=== PATIENT | male | born 1970 | race Two or more races ===

== ENCOUNTER 2017-10-13 21:06 | Emergency (ER) | payer OTHER ==
--- NOTE | 2017-10-13 21:39 | ED ---
General Adult HPI - General Chief complaint: Alcohol Stated complaint: ETOH Time Seen by Provider: 10/13/17 21:31 Source: police, EMS, RN notes reviewed Mode of arrival: EMS Limitations: altered mental status - History of Present Illness Initial comments: 47-year-old male presents to the emergency Department chief complaint of alcohol intoxication. Patient has no complaints at this time. He was brought by EMS due to the fact that he was stumbling. Patient denies any recent fever, chills, shortness of breath, chest pain, back pain, abdominal pain, nausea vomiting, numbness or tingling, dysuria or hematuria, constipation or diarrhea, headaches or visual changes, or any other current symptoms. - Related Data Home Medications Medication Instructions Recorded Confirmed No Known Home Medications [No 08/30/15 09/23/16 Known Home Medications] Allergies Allergy/AdvReac Type Severity Reaction Status Date / Time venom-honey bee Allergy Unknown Verified 09/23/16 17:53 [bee venom (honey bee)] Review of Systems ROS Statement: Those systems with pertinent positive or pertinent negative responses have been documented in the HPI. ROS Other: All systems not noted in ROS Statement are negative. Past Medical History Past Medical History: Unable to Obtain History of Any Multi-Drug Resistant Organisms: None Reported Past Surgical History: Orthopedic Surgery Additional Past Surgical History / Comment(s): LEFT KNEE SURGERY Past Psychological History: No Psychological Hx Reported Smoking Status: Current every day smoker Past Alcohol Use History: Occasional Past Drug Use History: Marijuana General Exam Limitations: altered mental status General appearance: alert, in no apparent distress Neck exam: Present: normal inspection. Absent: tenderness, meningismus, lymphadenopathy Respiratory exam: Present: normal lung sounds bilaterally. Absent: respiratory distress, wheezes, rales, rhonchi, stridor Cardiovascular Exam: Present: regular rate, normal rhythm, normal heart sounds. Absent: systolic murmur, diastolic murmur, rubs, gallop, clicks Neurological exam: Present: alert Skin exam: Present: warm, dry, intact, normal color. Absent: rash Course Vital Signs 10/13/17 21:08 Pulse Rate 90 Respiratory 16 Rate Blood Pressure 133/55 O2 Sat by Pulse 100 Oximetry Medical Decision Making - Medical Decision Making 47-year-old male presents to the emergency department with chief complaint of alcohol intoxication. At this time patient is clinically sober he is up walking around the department alert and oriented 3 answering all questions appropriately. At this time the patient will be discharged home. Patient is agreement this plan. Disposition Clinical Impression: Alcoholic intoxication Disposition: HOME SELF-CARE Condition: Stable Instructions: Alcohol Intoxication (ED) Additional Instructions: Please use medication as discussed. Please follow up with family doctor if symptoms have not improved over the next two days. Please return to the emergency room if your symptoms increase or worsen or for any other concerns. Referrals: Neisha Pina MD [STAFF PHYSICIAN] - 1-2 days Time of Disposition: 02:38
[2017-10-14 02:44] VITALS: BP 144/65; PULSE 95; RESP 19; TEMP 98.4
== END 2017-10-14 02:43 | disposition home or self-care (01) ==
LOC: EC 21:06
DX: F10.120 Alcohol abuse with intoxication, uncomplicated (principal); F17.200 Nicotine dependence, unspecified, uncomplicated; Z91.030 Bee allergy status
CPT/HCPCS: 99284

== ENCOUNTER 2018-06-12 23:22 | Observation (INO) | payer OTHER ==
[2018-06-12] MEDS ORDERED: SODIUM CHLORIDE 0.9% 1,000 ML BAG ONE (23:45)
[2018-06-12] MEDS ORDERED: LORazepam 2 MG/ML INJ ONE (23:45)
[2018-06-12] MEDS ORDERED: LIDOCAINE 1%-EPI 1:100,000 30 ML VIAL ONE (23:45)
[2018-06-12] MEDS ORDERED: HALOPERIDOL LACTATE 5 MG/ML 1 ML VIAL ONE (23:45)
[2018-06-13] MEDS ORDERED: DIPH,PERTUSS(ACELL),TET PED 0.5 ML SYRINGE IM ONE (00:55)
[2018-06-13] MEDS ORDERED: LORazepam 2 MG/ML INJ IV PRN ×3 (04:38)
[2018-06-13 04:39] LABS: Basophils # (A) 0.1 k/uL (0-0.2); Basophils % (A) 1 %; Eosinophils # (A) 0.2 k/uL (0-0.7); Eosinophils % (A) 3 %; HCT 46.5 % (39.0-53.0); HGB 16.3 gm/dL (13.0-17.5); Lymphocytes % (A) 33 %; MCH 33.5 pg (25.0-35.0); MCV 95.8 fL (80.0-100.0); Mean Platelet Volume 7.7; Monocytes # (A) 0.3 k/uL (0-1.0); Monocytes % (A) 4 %; Neutrophils # (A) 3.5 k/uL (1.3-7.7); Neutrophils % (A) 56 %; Platelet Count 181 k/uL (150-450); RBC 4.85 m/uL (4.30-5.90); RDW 15.1 % (11.5-15.5); WBC 6.2 k/uL (3.8-10.6)
[2018-06-13 04:41] LABS: Prothrombin Time 9.7 sec (9.0-12.0)
[2018-06-13] MEDS ORDERED: ONDANSETRON 4 MG/2 ML VIAL IVP PRN (04:41)
[2018-06-13] MEDS ORDERED: SODIUM CHLORIDE 0.9% 1,000 ML IV SCH (04:45)
[2018-06-13 04:59] LABS: ALT 39 U/L (21-72); AST 46 U/L (17-59); Albumin 4.2 g/dL (3.5-5.0); Alkaline Phosphatase 63 U/L (38-126); Anion Gap 14 mmol/L; Blood Urea Nitrogen 12 mg/dL (9-20); Calcium 8.7 mg/dL (8.4-10.2); Carbon Dioxide 18 mmol/L (22-30); Chloride 110 mmol/L (98-107); Glucose 214 mg/dL (74-99); Potassium 3.8 mmol/L (3.5-5.1); Sodium 142 mmol/L (137-145); Total Bilirubin 0.4 mg/dL (0.2-1.3); Total Protein 6.9 g/dL (6.3-8.2)
[2018-06-13 05:01] LABS: Alcohol 376 mg/dL
--- NOTE | 2018-06-13 08:56 | CT ---
EXAM: CT Chest, Abdomen Pelvis With Intravenous Contrast CLINICAL HISTORY: Trauma, ETOH, Pcu652/100ml, DLP 777.50 TECHNIQUE: Axial computed tomography images of the chest, abdomen pelvis with intravenous contrast. DLP is 777.5 mGy-cm. This CT exam was performed using one or more of the following dose reduction techniques: automated exposure control, adjustment of the mA and/or kV according to patient size, and/or use of iterative reconstruction technique. COMPARISON: No relevant prior studies available. FINDINGS: Mild artifact. No traumatic findings within the chest, abdomen or pelvis. No acute fractures. Nonemergent/incidental findings: Old left clavicle fracture, possible hepatic steatosis and transitional lumbosacral vertebra. IMPRESSION: No traumatic findings within the chest, abdomen or pelvis.
--- NOTE | 2018-06-13 09:00 | CT ---
EXAM: CT Head Without Intravenous Contrast CLINICAL HISTORY: ETOH trauma TECHNIQUE: Axial computed tomography images of the head/brain without intravenous contrast. DLP is 1081.6 mGy-cm. This CT exam was performed using one or more of the following dose reduction techniques: automated exposure control, adjustment of the mA and/or kV according to patient size, and/or use of iterative reconstruction technique. COMPARISON: No relevant prior studies available. FINDINGS: Extra cranial soft tissue injury suggested. No intracranial hemorrhage, mass effect or skull fracture. No hydrocephalus. No evidence for acute large vessel infarct. Imaged sinuses and mastoids well-aerated. IMPRESSION: No acute intracranial findings EXAM: CT Cervical Spine Without Intravenous Contrast CLINICAL HISTORY: ETOH trauma TECHNIQUE: Axial computed tomography images of the cervical spine without intravenous contrast. DLP is 399.1 mGy-cm. This CT exam was performed using one or more of the following dose reduction techniques: automated exposure control, adjustment of the mA and/or kV according to patient size, and/or use of iterative reconstruction technique. COMPARISON: No relevant prior studies available. FINDINGS: There is motion artifact at lower portions of exam. Allowing for artifact, no acute fracture. Degenerative changes. Old left clavicle fracture suggested on shoe stock associate film. Peritonsillar calcifications likely sequela of prior infection. IMPRESSION: Limited by motion. No acute fracture allowing for artifact.
--- NOTE | 2018-06-13 09:02 | XR ---
EXAM: XR Right Shoulder Complete, 2 or More Views CLINICAL HISTORY: ETOH TECHNIQUE: Two or more views of the right shoulder. COMPARISON: No relevant prior studies available. FINDINGS/IMPRESSION: No acute fracture or dislocation Degenerative changes. EXAM: XR Right Elbow Complete, 3 or More Views CLINICAL HISTORY: ETOH TECHNIQUE: Frontal, lateral and oblique views of the right elbow. COMPARISON: No relevant prior studies available. FINDINGS/IMPRESSION: Suboptimal positioning on lateral view No acute fracture or dislocation.
[2018-06-13 09:12] LABS: Glucose,Whole Blood 215 mg/dL (75-99)
[2018-06-13 09:27] VITALS: BP 87/54; PULSE 82; RESP 18; TEMP 97.8
[2018-06-13] MEDS ORDERED: THIAMINE 100 MG TAB PO SCH (12:00)
--- NOTE | 2018-06-13 12:09 | P.DS ---
Providers Date of admission: 06/13/18 03:00 Attending physician: Zeinab Gonsalez Primary care physician: Selena Ness [place] Hospital Course: Please refer to my HPI Plan - Discharge Summary New Discharge Prescriptions: No Action No Known Home Medications Discharge Medication List No Known Home Medications 08/30/15 [History] Follow up Appointment(s)/Referral(s): Thi Walters MD [Primary Care Provider] - 1 Week Patient Instructions/Handouts: Alcohol Intoxication (DC) Discharge Disposition: HOME SELF-CARE
--- NOTE | 2018-06-13 12:09 | P.HPIM ---
History of Present Illness 48-year-old the female was brought in after EMS was called by the bystanders as he was too drunk fell on the floor and had a laceration of the forehead. Patient was admitted for alcohol intoxication I'm unable to get much of the history from the patient as patient wanted to go home wanted to go to [place]. Apparently patient goes and bouts of drinking alcohol he drinks alcohol for 2 weeks quit alcohol for 2-3 weeks and started drinking again aberrantly patient was drinking lots avoid. I'm unsure whether patient did drink alcohol couple days ago are not. Patient is not willing to stay in the hospital because of which I cannot keep him for alcohol withdrawal monitoring. Although he is willing to quit alcohol and will follow-up in [place]. Patient is awake alert enough to make his own patient's I instructed him not to drive and patient will be discharged today to follow up in [place]. Patient has a both anion gap metabolic acidosis and non-anion gap metabolic acidosis from alcohol and hyperchloremia respectively. Patient was asked to take multivitamin if he can at home. Review of Systems REVIEW OF SYSTEMS: CONSTITUTIONAL: No fever, no malaise, no fatigue. HEENT: No recent visual problems or hearing problems. Denied any sore throat. CARDIOVASCULAR: No chest pain, orthopnea, PND, no palpitations, no syncope. PULMONARY: No shortness of breath, no cough, no hemoptysis. GASTROINTESTINAL: No diarrhea, no nausea, no vomiting, no abdominal pain. Normoactive bowel sounds. NEUROLOGICAL: No headaches, no weakness, no numbness. HEMATOLOGICAL: Denies any bleeding or petechiae. GENITOURINARY: Denies any burning micturition, frequency, or urgency. MUSCULOSKELETAL/RHEUMATOLOGICAL: Denies any joint pain, swelling, or any muscle pain. ENDOCRINE: Denies any polyuria or polydipsia. The rest of the 14-point review of systems is negative. Past Medical History Past Medical History: Unable to Obtain History of Any Multi-Drug Resistant Organisms: None Reported Past Surgical History: Orthopedic Surgery Additional Past Surgical History / Comment(s): LEFT KNEE SURGERY Past Psychological History: No Psychological Hx Reported Smoking Status: Current every day smoker Past Alcohol Use History: Occasional Past Drug Use History: Marijuana Medications and Allergies Home Medications Medication Instructions Recorded Confirmed Type No Known Home Medications 08/30/15 09/23/16 History Allergies Allergy/AdvReac Type Severity Reaction Status Date / Time venom-honey bee Allergy Unknown Verified 09/23/16 17:53 [bee venom (honey bee)] Physical Exam Vitals: Vital Signs Temp Pulse Pulse Resp BP Pulse Ox 06/13/18 08:00 97.8 F 82 18 87/54 96 06/13/18 04:00 16 06/13/18 03:00 98.2 F 71 16 99/61 97 Intake and Output 06/12/18 06/13/18 06/13/18 22:59 06:59 14:59 Other: # Voids 1 Weight 70.307 kg PHYSICAL EXAMINATION: GENERAL: The patient is alert and oriented x3, not in any acute distress. Well developed, well nourished. And is bit sweaty does smell of alcohol HEENT: Pupils are round and equally reacting to light. EOMI. No scleral icterus. No conjunctival pallor. Normocephalic, atraumatic. No pharyngeal erythema. No thyromegaly. CARDIOVASCULAR: S1 and S2 present. No murmurs, rubs, or gallops. PULMONARY: Chest is clear to auscultation, no wheezing or crackles. ABDOMEN: Soft, nontender, nondistended, normoactive bowel sounds. No palpable organomegaly. MUSCULOSKELETAL: No joint swelling or deformity. EXTREMITIES: No cyanosis, clubbing, or pedal edema. NEUROLOGICAL: Gross neurological examination did not reveal any focal deficits. SKIN: No rashes. Results CBC & Chem 7: 06/12/18 23:27 06/12/18 23:27 Labs: Abnormal Lab Results - Last 24 Hours (Table) 06/12/18 06/12/18 Range/Units 23:27 23:37 Chloride 110 H (98-107) mmol/L Carbon Dioxide 18 L (22-30) mmol/L Glucose 214 H (74-99) mg/dL POC Glucose (mg/dL) 215 H (75-99) mg/dL Assessment and Plan Plan: Alcohol abuse: Counseling was provided -Metabolic acidosis both anion gap metabolic acidosis and non-anion gap metabolic acidosis due to alcoholism and hyperchloremia respectively no further intervention is necessary at this time. -Elevated blood sugars patient has blood sugars of 214 and 2:15 unsure whether patient is diabetic or not patient will need to follow up as an outpatient for this evaluation I do not have any hemoglobin A1c available at this time.
== END 2018-06-13 11:05 | disposition home or self-care (01) ==
LOC: EC 23:22 → 3OBS 06-13 03:00 → INTOOBSV 06-13 03:00 → UNDODISIN 06-13 11:05
PROVIDERS: ADMIT Internal Medicine; ATTEND Internal Medicine
PROC: 3E0234Z Introduction of Serum, Toxoid and Vaccine into Muscle, Percutaneous Approach (ICD-10-PCS; principal; 2018-06-13)
PROC: 0HQ1XZZ Repair Face Skin, External Approach (ICD-10-PCS; 2018-06-13)
DX: F10.229 Alcohol dependence with intoxication, unspecified (principal); E87.2 Acidosis; E87.8 Other disorders of electrolyte and fluid balance, not elsewhere classified; Y90.8 Blood alcohol level of 240 mg/100 ml or more; Z23 Encounter for immunization; S01.111A Laceration without foreign body of right eyelid and periocular area, initial encounter; Q67.6 Pectus excavatum; R73.9 Hyperglycemia, unspecified; F17.200 Nicotine dependence, unspecified, uncomplicated; W18.30XA Fall on same level, unspecified, initial encounter; Z91.030 Bee allergy status
CPT/HCPCS: 12013; 90471; 96361; 96372; 96374; 99285; 80053; 83735; 85025; 85610; 85730; 80320; 73030; 73080; 72125; 70450; 71260; 74177; 90700; G0378; J2060; J1630

== ENCOUNTER 2018-11-14 22:12 | Observation (INO) | payer OTHER ==
--- NOTE | 2018-11-14 22:41 | ED ---
General Adult HPI - General Stated complaint: ETOH Time Seen by Provider: 11/14/18 22:14 - History of Present Illness Initial comments: Lio is a 48-year-old gentleman is brought to the emergency department tonight by EMS with police escort. Per police the patient was found laying in the grass outside, he admitted drinking excessive alcohol was otherwise combative and uncooperative with exam. 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 Provides no meaningful history. - Related Data Home Medications Medication Instructions Recorded Confirmed No Known Home Medications 08/30/15 09/23/16 Allergies Allergy/AdvReac Type Severity Reaction Status Date / Time venom-honey bee Allergy Unknown Verified 11/14/18 22:44 [bee venom (honey bee)] Review of Systems ROS Statement: Those systems with pertinent positive or pertinent negative responses have been documented in the HPI. ROS Other: All systems not noted in ROS Statement are negative. Limitations: ROS unobtainable due to patients medical condition (Agitation) Past Medical History Past Medical History: Unable to Obtain History of Any Multi-Drug Resistant Organisms: None Reported Past Surgical History: Orthopedic Surgery Additional Past Surgical History / Comment(s): LEFT KNEE SURGERY Past Psychological History: No Psychological Hx Reported Smoking Status: Current every day smoker Past Alcohol Use History: Occasional Past Drug Use History: Marijuana General Exam - General Exam Comments Initial Comments: Physical Exam GENERAL: Patient is well-developed and well-nourished. Patient is agitated HENT: Normocephalic, Atraumatic. EYES: PERRL, EOMI PULMONARY: Tachypneic CARDIOVASCULAR: Tachycardia, regular ABDOMEN: Soft and nontender with normal bowel sounds. SKIN: Skin is clear with no lesions or rashes and otherwise unremarkable. : Normal external genitalia, circumcised NEUROLOGIC: Oriented to self, able to identify that he is in a hospital Confused about events leading to hospitalization Slurred speech MUSCULOSKELETAL: Normal extremities with adequate strength and full range of motion. No lower extremity swelling or edema. No calf tenderness. PSYCHIATRIC: Agitated, threatening Limitations: no limitations Course Vital Signs 11/14/18 11/15/18 22:15 00:15 Temperature 97.8 F Pulse Rate 84 79 Respiratory 18 18 Rate Blood Pressure 124/80 99/58 O2 Sat by Pulse 94 L 97 Oximetry Medical Decision Making - Medical Decision Making The patient was seen and evaluated upon arrival to the emergency department Patient is agitated and combative IM Ativan was ordered, patient was restrained Given that the patient was found laying on the ground with no obvious head trauma but is profoundly intoxicated and unable to provide adequate history labs and imaging for possible trauma will be ordered Patient persistently agitated despite receiving Ativan, Haldol was given Labs reveal elevated serum alcohol level no other significant abnormalities are noted Computed tomography scan reveals no acute injury At this time I will plan to patient patient in observation due to his alcohol intoxication. Recommend reevaluation of the patient's mental status in the morning. - Lab Data Result diagrams: 11/14/18 22:58 11/14/18 22:58 Lab Results 11/14/18 11/14/18 11/14/18 Range/Units 22:58 22:58 23:08 WBC 8.9 (3.8-10.6) k/uL RBC 4.82 (4.30-5.90) m/uL Hgb 15.9 (13.0-17.5) gm/dL Hct 47.9 (39.0-53.0) % MCV 99.3 (80.0-100.0) fL MCH 32.9 (25.0-35.0) pg MCHC 33.1 (31.0-37.0) g/dL RDW 14.3 (11.5-15.5) % Plt Count 213 (150-450) k/uL Neutrophils % 63 % Lymphocytes % 26 % Monocytes % 5 % Eosinophils % 2 % Basophils % 1 % Neutrophils # 5.6 (1.3-7.7) k/uL Lymphocytes # 2.3 (1.0-4.8) k/uL Monocytes # 0.5 (0-1.0) k/uL Eosinophils # 0.2 (0-0.7) k/uL Basophils # 0.1 (0-0.2) k/uL Sodium 142 (137-145) mmol/L Potassium 4.0 (3.5-5.1) mmol/L Chloride 110 H (98-107) mmol/L Carbon Dioxide 23 (22-30) mmol/L Anion Gap 9 mmol/L BUN 7 L (9-20) mg/dL Creatinine 0.65 L (0.66-1.25) mg/dL Est GFR (CKD-EPI)AfAm >90 (>60 ml/min/1.73 sqM) Est GFR (CKD-EPI)NonAf >90 (>60 ml/min/1.73 sqM) Glucose 106 H (74-99) mg/dL Calcium 8.5 (8.4-10.2) mg/dL Total Bilirubin 0.2 (0.2-1.3) mg/dL AST 38 (17-59) U/L ALT 31 (21-72) U/L Alkaline Phosphatase 41 (38-126) U/L Total Protein 5.9 L (6.3-8.2) g/dL Albumin 3.3 L (3.5-5.0) g/dL Urine Color Colorless Urine Appearance Clear (Clear) Urine pH 5.5 (5.0-8.0) Ur Specific [place] 1.001 (1.001-1.035) Urine Protein Negative (Negative) Urine Glucose (UA) Negative (Negative) Urine Ketones Negative (Negative) Urine Blood Negative (Negative) Urine Nitrite Negative (Negative) Urine Bilirubin Negative (Negative) Urine Urobilinogen <2.0 (<2.0) mg/dL Ur Leukocyte Esterase Negative (Negative) Urine Opiates Screen Not Detected (NotDetected) Ur Oxycodone Screen Not Detected (NotDetected) Urine Methadone Screen Not Detected (NotDetected) Ur Propoxyphene Screen Not Detected (NotDetected) Ur Barbiturates Screen Not Detected (NotDetected) U Tricyclic Antidepress Not Detected (NotDetected) Ur Phencyclidine Scrn Not Detected (NotDetected) Ur Amphetamines Screen Not Detected (NotDetected) U Methamphetamines Scrn Not Detected (NotDetected) U Benzodiazepines Scrn Not Detected (NotDetected) Urine Cocaine Screen Not Detected (NotDetected) U Marijuana (THC) Screen Not Detected (NotDetected) Serum Alcohol 292 H* mg/dL Disposition Clinical Impression: Alcohol intoxication Disposition: ADMITTED IP TO THIS HOSP Referrals: Thi Walters MD [Primary Care Provider] - 1-2 days
[2018-11-14] MEDS ORDERED: LORazepam 2 MG/ML INJ IM STA (22:45)
[2018-11-14] MEDS ORDERED: HALOPERIDOL LACTATE 5 MG/ML 1 ML VIAL IM STA (23:02)
[2018-11-14 23:16] LABS: Basophils # (A) 0.1 k/uL (0-0.2); Basophils % (A) 1 %; Eosinophils # (A) 0.2 k/uL (0-0.7); Eosinophils % (A) 2 %; HCT 47.9 % (39.0-53.0); HGB 15.9 gm/dL (13.0-17.5); Lymphocytes # (A) 2.3 k/uL (1.0-4.8); Lymphocytes % (A) 26 %; MCH 32.9 pg (25.0-35.0); MCHC 33.1 g/dL (31.0-37.0); MCV 99.3 fL (80.0-100.0); Mean Platelet Volume 7.6; Monocytes # (A) 0.5 k/uL (0-1.0); Monocytes % (A) 5 %; Neutrophils # (A) 5.6 k/uL (1.3-7.7); Neutrophils % (A) 63 %; Platelet Count 213 k/uL (150-450); RBC 4.82 m/uL (4.30-5.90); RDW 14.3 % (11.5-15.5); WBC 8.9 k/uL (3.8-10.6)
[2018-11-14 23:24] LABS: Appearance,Urine Clear (Clear); Bilirubin,Urine Negative (Negative); Blood,Urine Negative (Negative); Color,Urine Colorless; Glucose,Urine (UA) Negative (Negative); Ketones,Urine Negative (Negative); Leukocyte Esterase,Urine Negative (Negative); Nitrite,Urine Negative (Negative); PH, Urine 5.5 (5.0-8.0); Protein,Urine Negative (Negative); Specific Gravity,Urine 1.001 (1.001-1.035); Urobilinogen,Urine <2.0 mg/dL (<2.0)
[2018-11-14 23:44] LABS: Amphetamine Screen,Urine Not Detected (NotDetected); Barbiturate Screen,Urine Not Detected (NotDetected); Benzodiazepines Screen,Urine Not Detected (NotDetected); Cocaine Screen,Urine Not Detected (NotDetected); Methadone Screen, Urine Not Detected (NotDetected); Opiate Screen,Urine Not Detected (NotDetected); Oxycodone Screen, Urine Not Detected (NotDetected); Phencyclidine Screen,Urine Not Detected (NotDetected); Tricyclic Antidepressant,Urine Not Detected (NotDetected); Urn Cannabinoid Scrn Not Detected (NotDetected)
[2018-11-14 23:52] LABS: ALT 31 U/L (21-72); AST 38 U/L (17-59); Albumin 3.3 g/dL (3.5-5.0); Alkaline Phosphatase 41 U/L (38-126); Anion Gap 9 mmol/L; Blood Urea Nitrogen 7 mg/dL (9-20); Calcium 8.5 mg/dL (8.4-10.2); Carbon Dioxide 23 mmol/L (22-30); Chloride 110 mmol/L (98-107); Glucose 106 mg/dL (74-99); Sodium 142 mmol/L (137-145); Total Bilirubin 0.2 mg/dL (0.2-1.3); Total Protein 5.9 g/dL (6.3-8.2)
[2018-11-14 23:56] LABS: Alcohol 292 mg/dL
--- NOTE | 2018-11-15 01:03 | CT ---
EXAMINATION TYPE: CT brain amaury wo con DATE OF EXAM: 11/15/2018 COMPARISON: 06/13/2018 HISTORY: patient presents etoh. Found on side of road. 1380.[address] DLP: 1380.2 mGycm Automated exposure control for dose reduction was used. TECHNIQUE: CT scan of the head and cervical spine are performed without contrast. FINDINGS: Ventricles of normal size. There is no mass effect nor midline shift. There is no sign of intracranial hemorrhage. The calvarium is intact. Cervical vertebra have normal alignment. There is anterior spurring at C5-6 C6-7. There is no juan miguel oumou fracture. Posterior elements are intact. Skull base is intact. IMPRESSION: Negative CT scan of the brain. Mild spondylosis at C5-6 C6-7. No fracture. No change compared to old exam.
[2018-11-15] MEDS ORDERED: NALOXONE 0.4 MG/ML 1 ML VIAL IV PRN (01:38)
[2018-11-15] MEDS ORDERED: SODIUM CHLORIDE 0.9% 1,000 ML IV SCH (01:45)
[2018-11-15] MEDS ORDERED: THIAMINE 100 MG/ML 2 ML VIAL IM STA (02:06)
[2018-11-15] MEDS ORDERED: LORazepam 2 MG/ML INJ IV PRN ×3 (02:06)
[2018-11-15 08:40] VITALS: BP 95/54; PULSE 73; RESP 18; TEMP 98.2
--- NOTE | 2018-11-15 11:43 | P.HPIM ---
History of Present Illness H&P Date: 11/15/18 48 year-old gentleman came to the ER after been escorted by the police as he was found lying in the grass outside he apparently was admitted for all cause intoxication. The patient apparently left AMA even before I could see the patient Past Medical History Past Medical History: Unable to Obtain History of Any Multi-Drug Resistant Organisms: None Reported Past Surgical History: Orthopedic Surgery Additional Past Surgical History / Comment(s): LEFT KNEE SURGERY Past Psychological History: No Psychological Hx Reported Smoking Status: Current every day smoker Past Alcohol Use History: Occasional Past Drug Use History: Marijuana Medications and Allergies Home Medications Medication Instructions Recorded Confirmed Type No Known Home Medications 08/30/15 11/15/18 History Allergies Allergy/AdvReac Type Severity Reaction Status Date / Time venom-honey bee Allergy Unknown Verified 11/15/18 09:08 [bee venom (honey bee)] Physical Exam Vitals: Vital Signs Temp Pulse Pulse Resp BP BP Pulse Ox 11/15/18 08:00 98.2 F 73 18 95/54 95 11/15/18 04:00 78 16 11/15/18 03:00 78 16 81/50 98 11/15/18 02:43 72 20 100/63 96 11/15/18 00:15 79 18 99/58 97 11/14/18 22:15 97.8 F 84 18 124/80 94 L Intake and Output 11/14/18 11/15/18 11/15/18 22:59 06:59 14:59 Other: Weight 79.832 kg Results CBC & Chem 7: 11/14/18 22:58 11/14/18 22:58 Labs: Abnormal Lab Results - Last 24 Hours (Table) 11/14/18 Range/Units 22:58 Chloride 110 H (98-107) mmol/L BUN 7 L (9-20) mg/dL Creatinine 0.65 L (0.66-1.25) mg/dL Glucose 106 H (74-99) mg/dL Total Protein 5.9 L (6.3-8.2) g/dL Albumin 3.3 L (3.5-5.0) g/dL Serum Alcohol 292 H* mg/dL
--- NOTE | 2018-11-15 11:44 | P.DS ---
Providers Date of admission: 11/15/18 01:38 Expected date of discharge: 11/15/18 Attending physician: Hipolito Lorenzo Primary care physician: Selena Ness [place] Hospital Course: Patient was admitted for intoxication after he was escorted by the police to the ER he was found lying outside in the grass. He has a history of drinking [employer]. He left AMA before I could see him Plan - Discharge Summary New Discharge Prescriptions: No Action No Known Home Medications Discharge Medication List No Known Home Medications 08/30/15 [History] Follow up Appointment(s)/Referral(s): Thi Walters MD [Primary Care Provider] - 1-2 days Discharge Disposition: Left Against Medical Advice
== END 2018-11-15 09:38 | disposition left against medical advice (07) ==
LOC: EC 22:12 → 1SOBS 11-15 01:38
PROVIDERS: ADMIT Hospitalist; ATTEND Hospitalist
DX: F10.129 Alcohol abuse with intoxication, unspecified (principal); R00.0 Tachycardia, unspecified; Z91.030 Bee allergy status; F17.200 Nicotine dependence, unspecified, uncomplicated; Z78.1 Physical restraint status; Z53.21 Procedure and treatment not carried out due to patient leaving prior to being seen by health care provider; Y90.8 Blood alcohol level of 240 mg/100 ml or more
CPT/HCPCS: 96374; 96372; 99285; 36415; 93005; 80053; 85025; 81003; 80306; 72125; 70450; G0378; G0480; J2060 ×2; J1630; 80320

== ENCOUNTER 2019-01-23 14:13 | Observation (INO) | payer OTHER ==
[2019-01-23] MEDS ORDERED: SODIUM CHLORIDE 0.9% 1,000 ML with MVI, ADULT NO.4 WITH VIT K 10 ML, THIAMINE 100 MG, F... IV ONE ×4 (14:30)
--- NOTE | 2019-01-23 14:41 | ED ---
General Adult HPI - General Chief complaint: Fall Stated complaint: ETOH Time Seen by Provider: 01/23/19 14:20 Source: police, EMS, RN notes reviewed Mode of arrival: EMS Limitations: altered mental status - History of Present Illness Initial comments: This is a 48-year-old male who presents to the emergency department after he was intoxicated. Patient slipped and hit his head on the stairs of a bus did not lose consciousness did not appear to be days but was heavily intoxicated. Patient has no complaints. Patient denies chest pain difficulty breathing shortest breath. Patient denies any abdominal pain patient denies nausea vomiting diarrhea. Patient denies headache patient denies any neck pain. Patient denies any numbness or weakness. Patient denies any drug use. Patient denies any vomiting. Denies any recent fever chills - Related Data Home Medications Medication Instructions Recorded Confirmed No Known Home Medications 08/30/15 11/15/18 Allergies Allergy/AdvReac Type Severity Reaction Status Date / Time venom-honey bee Allergy Unknown Verified 11/15/18 09:08 [bee venom (honey bee)] Review of Systems ROS Statement: Those systems with pertinent positive or pertinent negative responses have been documented in the HPI. ROS Other: All systems not noted in ROS Statement are negative. Past Medical History Past Medical History: Unable to Obtain History of Any Multi-Drug Resistant Organisms: None Reported Past Surgical History: Orthopedic Surgery Additional Past Surgical History / Comment(s): LEFT KNEE SURGERY Past Psychological History: No Psychological Hx Reported Smoking Status: Current every day smoker Past Alcohol Use History: Occasional Past Drug Use History: Marijuana General Exam - General Exam Comments Initial Comments: GENERAL: Patient is well-developed and well-nourished. Patient is nontoxic and well- hydrated and is in mild distress. ENT: Neck is soft and supple. No significant lymphadenopathy is noted. Oropharynx is clear. Moist mucous membranes. Neck has full range of motion without eliciting any pain. EYES: The sclera were anicteric and conjunctiva were pink and moist. Extraocular movements were intact and pupils were equal round and reactive to light. Eyelids were unremarkable. PULMONARY: Unlabored respirations. Good breath sounds bilaterally. No audible rales rhonchi or wheezing was noted. CARDIOVASCULAR: There is a regular rate and rhythm without any murmurs gallops or rubs. ABDOMEN: Soft and nontender with normal bowel sounds. SKIN: Skin is clear with no lesions or rashes and otherwise unremarkable. NEUROLOGIC: Patient is alert and oriented x3. Cranial nerves II through XII are grossly intact. Motor and sensory are also intact. Normal speech, volume and content. Symmetrical smile. MUSCULOSKELETAL: Normal extremities with adequate strength and full range of motion. LYMPHATICS: No significant lymphadenopathy is noted PSYCHIATRIC: Patient denies any suicidal homicidal ideations. Patient states he has been drinking heavily Limitations: altered mental status Course Vital Signs 01/23/19 01/23/19 01/23/19 14:21 15:29 16:00 Temperature 96.8 F L Pulse Rate 89 101 H 75 Respiratory 20 20 20 Rate Blood Pressure 135/102 116/83 107/75 O2 Sat by Pulse 97 96 99 Oximetry Procedures - Restraint - Face to Face Restraint Occurrence 1 Patient's Immediate Situation: Endangers self safety, Endangers others' safety, Endangers staff safety Patient's Reaction to the Intervention: Uncooperative, Hostile, Belligerent Patient's Medical & Behavioral Condition: Awake, Alert, Agitated Need to Continue or Terminate Restraint or Seclusion: Continue Face to Face Eval of Restraint Date: 01/23/19 Face to Face Eval of Restraint Time: 14:50 Medical Decision Making - Medical Decision Making CT of the brain and C-spine show no acute abnormality. Patient was very agitated and emergency department needed Anne and Geodon to settle him down slightly to get a CAT scan of his head and neck. Patient will be admitted for alcohol intoxication. Patient was alert and oriented prior to be admitted he is not being kept for any head injury at this time had not been for his alcohol intoxication he would be discharged home. - Lab Data Result diagrams: 01/23/19 15:00 01/23/19 15:00 Lab Results 01/23/19 01/23/19 Range/Units 15:00 15:00 WBC 10.6 (3.8-10.6) k/uL RBC 5.24 (4.30-5.90) m/uL Hgb 17.3 (13.0-17.5) gm/dL Hct 54.5 H (39.0-53.0) % MCV 104.0 H (80.0-100.0) fL MCH 33.0 (25.0-35.0) pg MCHC 31.8 (31.0-37.0) g/dL RDW 14.2 (11.5-15.5) % Plt Count 253 (150-450) k/uL Neutrophils % 52 % Lymphocytes % 37 % Monocytes % 5 % Eosinophils % 2 % Basophils % 1 % Neutrophils # 5.5 (1.3-7.7) k/uL Lymphocytes # 3.9 (1.0-4.8) k/uL Monocytes # 0.5 (0-1.0) k/uL Eosinophils # 0.2 (0-0.7) k/uL Basophils # 0.1 (0-0.2) k/uL Macrocytosis Slight Sodium 147 H (137-145) mmol/L Potassium 4.1 (3.5-5.1) mmol/L Chloride 109 H (98-107) mmol/L Carbon Dioxide 20 L (22-30) mmol/L Anion Gap 18 mmol/L BUN 6 L (9-20) mg/dL Creatinine 0.80 (0.66-1.25) mg/dL Est GFR (CKD-EPI)AfAm >90 (>60 ml/min/1.73 sqM) Est GFR (CKD-EPI)NonAf >90 (>60 ml/min/1.73 sqM) Glucose 106 H (74-99) mg/dL Calcium 9.0 (8.4-10.2) mg/dL Magnesium 2.2 (1.6-2.3) mg/dL Total Bilirubin 0.5 (0.2-1.3) mg/dL AST 40 (17-59) U/L ALT 28 (21-72) U/L Alkaline Phosphatase 52 (38-126) U/L Total Protein 7.0 (6.3-8.2) g/dL Albumin 4.4 (3.5-5.0) g/dL Serum Alcohol 292 H* mg/dL Disposition Clinical Impression: Alcohol intoxication Disposition: ADMITTED IP TO THIS HOSP Referrals: Thi Walters MD [Primary Care Provider] - 1-2 days Time of Disposition: 16:09
[2019-01-23] MEDS ORDERED: LORazepam 2 MG/ML INJ IV STA (14:43)
[2019-01-23] MEDS ORDERED: ZIPRASIDONE 20 MG VIAL IM STA (14:43)
[2019-01-23 15:17] LABS: Basophils # (A) 0.1 k/uL (0-0.2); Basophils % (A) 1 %; Eosinophils # (A) 0.2 k/uL (0-0.7); Eosinophils % (A) 2 %; HCT 54.5 % (39.0-53.0); HGB 17.3 gm/dL (13.0-17.5); Lymphocytes # (A) 3.9 k/uL (1.0-4.8); Lymphocytes % (A) 37 %; MCHC 31.8 g/dL (31.0-37.0); Macrocytosis Slight; Mean Platelet Volume 7.2; Monocytes # (A) 0.5 k/uL (0-1.0); Monocytes % (A) 5 %; Neutrophils # (A) 5.5 k/uL (1.3-7.7); Neutrophils % (A) 52 %; Platelet Count 253 k/uL (150-450); RBC 5.24 m/uL (4.30-5.90); RDW 14.2 % (11.5-15.5); WBC 10.6 k/uL (3.8-10.6)
[2019-01-23 15:22] LABS: ALT 28 U/L (21-72); AST 40 U/L (17-59); Albumin 4.4 g/dL (3.5-5.0); Alkaline Phosphatase 52 U/L (38-126); Anion Gap 18 mmol/L; Blood Urea Nitrogen 6 mg/dL (9-20); Carbon Dioxide 20 mmol/L (22-30); Chloride 109 mmol/L (98-107); Glucose 106 mg/dL (74-99); Magnesium 2.2 mg/dL (1.6-2.3); Potassium 4.1 mmol/L (3.5-5.1); Sodium 147 mmol/L (137-145); Total Bilirubin 0.5 mg/dL (0.2-1.3)
[2019-01-23 15:25] LABS: Alcohol 292 mg/dL
[2019-01-23] MEDS ORDERED: THIAMINE 100 MG/ML 2 ML VIAL IM STA (16:11)
[2019-01-23] MEDS ORDERED: LORazepam 2 MG/ML INJ IV PRN ×3 (16:11)
[2019-01-23 17:09] VITALS: RESP 16
--- NOTE | 2019-01-23 18:01 | CT ---
EXAMINATION TYPE: CT brain amaury caldera con DATE OF EXAM: 01/23/2019 COMPARISON: 11/14/2018 HISTORY: pain neck pain. Headache. CT DLP: 1396.7 mGycm Automated exposure control for dose reduction was used. TECHNIQUE: CT scan of the head and cervical spine are performed without contrast. FINDINGS: There is mild cerebral cortical atrophy. There is no mass effect nor midline shift. There is no sign of intracranial hemorrhage. The calvarium is intact. The cervical vertebra have fairly normal alignment. Posterior elements are intact. Skull base is inta ct. Facet joints are intact. There is mild narrowing and spur formation at C5-6 and C6-7. IMPRESSION: Negative CT scan of the brain. No change. Mild spondylotic change in the lower cervical spine. No fracture. No change.
[2019-01-23 20:33] VITALS: TEMP 96.7
[2019-01-24 05:34] VITALS: BP 117/70; PULSE 100
== END 2019-01-24 08:25 | disposition left against medical advice (07) ==
LOC: EC 14:13 → 3NMEDONC 16:09
PROVIDERS: ADMIT Internal Medicine; ATTEND Internal Medicine
DX: F10.129 Alcohol abuse with intoxication, unspecified (principal); W10.8XXA Fall (on) (from) other stairs and steps, initial encounter; Y90.8 Blood alcohol level of 240 mg/100 ml or more; F17.200 Nicotine dependence, unspecified, uncomplicated; Z78.1 Physical restraint status; Z91.030 Bee allergy status
CPT/HCPCS: 82075; 96361; 96372; 96374; 99285; 36415; 80053; 83735; 85025; 72125; 70450; G0378 ×2; G0480 ×2; J2060; J3411; J3486; 80320; 96376

== ENCOUNTER 2019-02-06 15:52 | Observation (INO) | payer OTHER ==
[2019-02-06] MEDS ORDERED: diphenhydrAMINE 50 MG/ML 1 ML VIAL IM STA (16:00)
[2019-02-06] MEDS ORDERED: LORazepam 2 MG/ML INJ IM STA (16:00)
[2019-02-06] MEDS ORDERED: HALOPERIDOL LACTATE 5 MG/ML 1 ML VIAL IM STA (16:00)
--- NOTE | 2019-02-06 16:22 | ED ---
General Adult HPI <AakashKeanu - Last Filed: 02/06/19 18:21> - General Source: RN notes reviewed <Dylan Sood - Last Filed: 02/08/19 10:19> - General Stated complaint: ETOH Time Seen by Provider: 02/06/19 15:52 - History of Present Illness Initial comments: This is a 49-year-old male who presents emergency Department with EMS and the police because of his aggressive behavior. Patient was found highly intoxicated and with abrasions on the left side of his face per patient was not telling anyone what happened and he was very combative and uncooperative. Police said willie wiggins did not get in any altercation with the patient. Patient was immediately restrained to the bed because of his aggressiveness. (Dylan Sood) - Related Data Home Medications Medication Instructions Recorded Confirmed No Known Home Medications 08/30/15 11/15/18 Allergies Allergy/AdvReac Type Severity Reaction Status Date / Time venom-honey bee Allergy Unknown Verified 11/15/18 09:08 [bee venom (honey bee)] Review of Systems ROS Other: All systems not noted in ROS Statement are negative. <Keanu Finn - Last Filed: 02/06/19 18:21> ROS Other: All systems not noted in ROS Statement are negative. <Dylan Sood - Last Filed: 02/08/19 10:19> ROS Statement: Those systems with pertinent positive or pertinent negative responses have been documented in the HPI. Past Medical History Past Medical History: Unable to Obtain History of Any Multi-Drug Resistant Organisms: None Reported Past Surgical History: Orthopedic Surgery Additional Past Surgical History / Comment(s): LEFT KNEE SURGERY Past Psychological History: No Psychological Hx Reported Smoking Status: Current every day smoker Past Alcohol Use History: Occasional Past Drug Use History: Marijuana <Dylan Sood - Last Filed: 02/08/19 10:19> General Exam <Dylan Sood - Last Filed: 02/08/19 10:19> - General Exam Comments Initial Comments: GENERAL: Patient is well-developed and well-nourished. Patient is nontoxic and well- hydrated and is appears to be intoxicated. ENT: Neck is soft and supple. No significant lymphadenopathy is noted. Oropharynx is clear. Moist mucous membranes. Neck has full range of motion without eliciting any pain. Patient has abrasions to his face but the areas don't appear to be tender when I palpate but the patient is very uncooperative. EYES: The sclera were anicteric and conjunctiva were pink and moist. Extraocular movements were intact and pupils were equal round and reactive to light. Eyelids were unremarkable. PULMONARY: Unlabored respirations. Good breath sounds bilaterally. No audible rales rhonchi or wheezing was noted. CARDIOVASCULAR: There is a regular rate and rhythm without any murmurs gallops or rubs. ABDOMEN: Soft and nontender with normal bowel sounds. SKIN: Patient has abrasions to the left side of his face on the upper cheek and lip. NEUROLOGIC: Patient is alert and oriented x3. Cranial nerves II through XII are grossly intact. Motor and sensory are also intact. Normal speech, volume and content. Symmetrical smile. MUSCULOSKELETAL: Normal extremities with adequate strength and full range of motion. LYMPHATICS: No significant lymphadenopathy is noted PSYCHIATRIC: Patient is aggressive and uncooperative (Dylan Sood) Course Vital Signs 02/06/19 02/06/19 16:07 19:08 Pulse Rate 72 76 Respiratory 20 18 Rate Blood Pressure 141/101 108/73 O2 Sat by Pulse 97 100 Oximetry Procedures - Restraint - Face to Face Restraint Occurrence 1 Patient's Immediate Situation: Endangers self safety, Endangers others' safety, Endangers staff safety, Violent behavior Patient's Reaction to the Intervention: Uncooperative, Angry, Belligerent, Aggressive, Combative Patient's Medical & Behavioral Condition: Awake, Alert, Agitated Need to Continue or Terminate Restraint or Seclusion: Continue Face to Face Eval of Restraint Date: 02/06/19 Face to Face Eval of Restraint Time: 16:10 <Dylan Sood - Last Filed: 02/08/19 10:19> Medical Decision Making - Lab Data Result diagrams: 02/06/19 17:25 02/06/19 17:25 <Keanu Finn - Last Filed: 02/06/19 18:21> - Lab Data Result diagrams: 02/06/19 17:25 02/06/19 17:25 <Dylan Sood - Last Filed: 02/08/19 10:19> - Medical Decision Making Patient presents emergency room intoxicated. Restraints had been placed. Currently the restraints have been removed. IV has been started labs been sent. The patient has been sent down to CAT scan for appropriate studies. Case discussed with Patient admitted to his service for further evaluation and management. (Keanu Finn) Patient's care will be taking over by Dr. Finn at 5 PM (Dylan Sood) - Lab Data Lab Results 02/06/19 02/06/19 Range/Units 17:25 17:25 WBC 5.6 (3.8-10.6) k/uL RBC 5.37 (4.30-5.90) m/uL Hgb 18.2 H (13.0-17.5) gm/dL Hct 54.3 H (39.0-53.0) % MCV 101.1 H (80.0-100.0) fL MCH 33.9 (25.0-35.0) pg MCHC 33.5 (31.0-37.0) g/dL RDW 14.0 (11.5-15.5) % Plt Count 152 (150-450) k/uL Neutrophils % 66 % Lymphocytes % 26 % Monocytes % 4 % Eosinophils % 1 % Basophils % 1 % Neutrophils # 3.7 (1.3-7.7) k/uL Lymphocytes # 1.5 (1.0-4.8) k/uL Monocytes # 0.2 (0-1.0) k/uL Eosinophils # 0.1 (0-0.7) k/uL Basophils # 0.1 (0-0.2) k/uL Macrocytosis Slight Sodium 144 (137-145) mmol/L Potassium 4.7 (3.5-5.1) mmol/L Chloride 110 H (98-107) mmol/L Carbon Dioxide 26 (22-30) mmol/L Anion Gap 8 mmol/L BUN 4 L (9-20) mg/dL Creatinine 0.69 (0.66-1.25) mg/dL Est GFR (CKD-EPI)AfAm >90 (>60 ml/min/1.73 sqM) Est GFR (CKD-EPI)NonAf >90 (>60 ml/min/1.73 sqM) Glucose 79 (74-99) mg/dL Calcium 8.3 L (8.4-10.2) mg/dL Serum Alcohol 292 H* mg/dL Disposition Is patient prescribed a controlled substance at d/c from ED?: No <Keanu Finn - Last Filed: 02/06/19 18:21> <Dylan Sood - Last Filed: 02/08/19 10:19> Clinical Impression: Alcohol intoxication Disposition: ADMITTED IP TO THIS HOSP Condition: Fair
[2019-02-06 17:46] LABS: Basophils # (A) 0.1 k/uL (0-0.2); Basophils % (A) 1 %; Eosinophils # (A) 0.1 k/uL (0-0.7); Eosinophils % (A) 1 %; HCT 54.3 % (39.0-53.0); HGB 18.2 gm/dL (13.0-17.5); Lymphocytes # (A) 1.5 k/uL (1.0-4.8); Lymphocytes % (A) 26 %; MCH 33.9 pg (25.0-35.0); MCHC 33.5 g/dL (31.0-37.0); MCV 101.1 fL (80.0-100.0); Macrocytosis Slight; Mean Platelet Volume 7.2; Monocytes # (A) 0.2 k/uL (0-1.0); Monocytes % (A) 4 %; Neutrophils # (A) 3.7 k/uL (1.3-7.7); Neutrophils % (A) 66 %; Platelet Count 152 k/uL (150-450); RBC 5.37 m/uL (4.30-5.90); WBC 5.6 k/uL (3.8-10.6)
--- NOTE | 2019-02-06 17:52 | CT ---
EXAMINATION TYPE: CT facial bones wo con DATE OF EXAM: 02/06/2019 COMPARISON: 09/06/2016 HISTORY: Facial/head trauma CT DLP: dose is calculated in brain c-spine mGycm Automated exposure control for dose reduction was used. Multiple axial sections were obtained from the bottom of the mandible to the top of the frontal sinus es without contrast. FINDINGS: The mandibular ring appears intact. Temporomandibular joints appear normal. Zygomatic arches appear n ormal. There is mucosal thickening in the maxillary sinuses and more on the left side. There is no ev idence of a blowout fracture. Orbital margins are intact. There is no evidence of retro-orbital mass. There is nasal bone fracture. Nasal bone is deviated to the right side. The temporal bones appear in tact. Mastoid sinuses appear normal. IMPRESSION: There is displaced nasal bone fracture unchanged in position compared to old CT scan. No acute fractu re seen. Maxillary sinusitis.
[2019-02-06 17:55] LABS: Anion Gap 8 mmol/L; Blood Urea Nitrogen 4 mg/dL (9-20); Calcium 8.3 mg/dL (8.4-10.2); Carbon Dioxide 26 mmol/L (22-30); Chloride 110 mmol/L (98-107); Glucose 79 mg/dL (74-99); Potassium 4.7 mmol/L (3.5-5.1); Sodium 144 mmol/L (137-145)
--- NOTE | 2019-02-06 17:58 | CT ---
EXAMINATION TYPE: CT brain amaury wo con DATE OF EXAM: 02/06/2019 COMPARISON: 01/23/2019 HISTORY: Head trauma Headache. Neck pain. CT DLP: 1055 mGycm Automated exposure control for dose reduction was used. TECHNIQUE: CT scan of the head and cervical spine are performed without contrast. FINDINGS: Ventricles of normal size. There is no mass effect nor midline shift. There is no sign of intracranial hemorrhage. Calvarium is intact. Cervical vertebra have normal alignment. There is hypertrophic anterior spurring at C5-6 and C6-7. Th ere is posterior endplate spur formation at C5-6 and C6-7. Facet joints are intact. The skull base is intact. IMPRESSION: Negative CT scan of the brain. No change. Spondylotic changes in the lower cervical spine. No fracture. No change.
[2019-02-06 18:06] LABS: Alcohol 292 mg/dL
[2019-02-06] MEDS ORDERED: THIAMINE 100 MG/ML 2 ML VIAL IM STA (18:23)
[2019-02-06] MEDS ORDERED: LORazepam 2 MG/ML INJ IV PRN ×3 (18:23)
[2019-02-06] MEDS ORDERED: NALOXONE 0.4 MG/ML 1 ML VIAL IV PRN (18:24)
[2019-02-06 19:13] VITALS: RESP 18
[2019-02-06] MEDS ORDERED: FAMOTIDINE 20 MG TAB PO SCH (21:00)
[2019-02-06] MEDS ORDERED: HEPARIN SODIUM,PORCINE 5,000 UNIT/ML 1 ML VIAL SQ SCH (21:15)
[2019-02-07 04:32] LABS: Amphetamine Screen,Urine Not Detected (NotDetected); Cocaine Screen,Urine Not Detected (NotDetected); Opiate Screen,Urine Not Detected (NotDetected); Phencyclidine Screen,Urine Not Detected (NotDetected); Urn Cannabinoid Scrn Detected (NotDetected)
[2019-02-07 04:33] LABS: Barbiturate Screen,Urine Not Detected (NotDetected); Benzodiazepines Screen,Urine Detected (NotDetected); Methadone Screen, Urine Not Detected (NotDetected); Oxycodone Screen, Urine Not Detected (NotDetected); Tricyclic Antidepressant,Urine Not Detected (NotDetected)
[2019-02-07 05:21] VITALS: BP 107/67; PULSE 95; TEMP 98.2
[2019-02-07] MEDS ORDERED: THIAMINE 100 MG TAB PO SCH (12:00)
--- NOTE | 2019-02-12 05:55 | P.HPIM ---
History of Present Illness this is a combined H&P and discharge summary this is a 49 yo M who was brought to the hospital for alcohol intoxication and combative behavior as per ED note.his alcohol level was 292 on admission. pt was admitted through my colleague who accepted the pt. i first heard about the pt when the bed side RN called me marketing development manager that pt is awake again and he wants to sign leaving AMA. as per bed side RN, pt is fully awake and oriented to place, person and hospital and he knows why he is in the hospital , he is with no suicidal ideation or hallucination , and pt wants to leave ama because he has to go to work . as per bed side RN, pt looks appropriated he told me he can not hold him against his will , also that pt did not want to wait for me to come and see him when he asked him . risks of leaving ama including to but not limited to risk of permanent organ damage and are explained for him and he still wanted to leave ama Past Medical History Past Medical History: Unable to Obtain History of Any Multi-Drug Resistant Organisms: None Reported Past Surgical History: Orthopedic Surgery Additional Past Surgical History / Comment(s): LEFT KNEE SURGERY Past Psychological History: No Psychological Hx Reported Smoking Status: Current every day smoker Past Alcohol Use History: Occasional Past Drug Use History: Marijuana Medications and Allergies Home Medications Medication Instructions Recorded Confirmed Type No Known Home Medications 08/30/15 11/15/18 History Allergies Allergy/AdvReac Type Severity Reaction Status Date / Time venom-honey bee Allergy Unknown Verified 11/15/18 09:08 [bee venom (honey bee)] Results CBC & Chem 7: 02/06/19 17:25 02/06/19 17:25 Thrombosis Risk Factor Assmnt - Choose All That Apply Any of the Below Risk Factors Present?: Yes Each Factor Represents 1 point: Age 41-60 years, Obesity (BMI >25) Thrombosis Risk Factor Assessment Total Risk Factor Score: 2 Thrombosis Risk Factor Assessment Level: Low Risk
== END 2019-02-07 06:37 | disposition left against medical advice (07) ==
LOC: EC 15:52 → 3NMEDONC 18:25
PROVIDERS: ADMIT Internal Medicine; ATTEND Internal Medicine
DX: F10.129 Alcohol abuse with intoxication, unspecified (principal); Z78.1 Physical restraint status; R45.6 Violent behavior; S02.2XXA Fracture of nasal bones, initial encounter for closed fracture; S00.511A Abrasion of lip, initial encounter; S00.81XA Abrasion of other part of head, initial encounter; F17.200 Nicotine dependence, unspecified, uncomplicated; Z91.030 Bee allergy status; Z53.21 Procedure and treatment not carried out due to patient leaving prior to being seen by health care provider; Y90.8 Blood alcohol level of 240 mg/100 ml or more; X58.XXXA Exposure to other specified factors, initial encounter
CPT/HCPCS: 96372 ×2; 99285; 36415; 80048; 85025; 80306; 72125; 70486; 70450; G0378 ×2; G0480; J2060; J1200; J1630; J1644; J3411; 80320

== ENCOUNTER 2020-06-20 21:31 | Observation (INO) | payer OTHER ==
--- NOTE | 2020-06-20 22:19 | ED ---
Alcohol HPI - General Chief Complaint: Alcohol Stated Complaint: ETOH Time Seen by Provider: 06/20/20 21:56 Source: patient, police Mode of arrival: wheelchair Limitations: no limitations - History of Present Illness Initial Comments: Patient is a 50-year-old male with history of alcohol abuse presenting to the emergency room with a chief complaint alcohol intoxication. Patient brought to the ED by the [place] [employer] after she was found the field with a breath alcohol 0.360. Patient initially agitated and yelling in the emergency department. On evaluation patient states he is a daily drinker and alternates between vodka and beer. States he is going to rehab on Monday. Patient denies any homicidal suicidal thoughts or ideations. Patient is on the medical complaints at this time. - Related Data Home Medications Medication Instructions Recorded Confirmed No Known Home Medications 08/30/15 11/15/18 Allergies Allergy/AdvReac Type Severity Reaction Status Date / Time venom-honey bee Allergy Unknown Verified 06/20/20 21:42 [bee venom (honey bee)] Review of Systems ROS Statement: Those systems with pertinent positive or pertinent negative responses have been documented in the HPI. ROS Other: All systems not noted in ROS Statement are negative. Past Medical History Past Medical History: Unable to Obtain History of Any Multi-Drug Resistant Organisms: None Reported Past Surgical History: Orthopedic Surgery Additional Past Surgical History / Comment(s): LEFT KNEE SURGERY Past Psychological History: No Psychological Hx Reported Smoking Status: Current every day smoker Past Alcohol Use History: Abuse, Daily, Heavy Past Drug Use History: Marijuana General Exam Limitations: no limitations General appearance: alert, appears intoxicated Head exam: Present: atraumatic, normocephalic, normal inspection Eye exam: Present: normal appearance, PERRL, EOMI Pupils: Present: normal accommodation ENT exam: Present: normal oropharynx, mucous membranes dry Neck exam: Present: normal inspection, full ROM. Absent: tenderness Respiratory exam: Present: normal lung sounds bilaterally. Absent: respiratory distress, wheezes Cardiovascular Exam: Present: regular rate, normal rhythm, normal heart sounds Extremities exam: Present: normal inspection, full ROM. Absent: tenderness Back exam: Present: normal inspection, full ROM Neurological exam: Present: alert Psychiatric exam: Present: normal affect, agitated Skin exam: Present: warm, dry, intact, normal color Course Vital Signs 06/20/20 21:39 Temperature 97.0 F L Pulse Rate 106 H Respiratory 18 Rate Blood Pressure 163/110 O2 Sat by Pulse 96 Oximetry Medical Decision Making - Medical Decision Making Patient is a 50-year-old male with history of alcohol abuse presented emergency department with chief complaint of alcohol intoxication. On exam patient has some agitation but was able to calm down after. No homicidal, suicidal thoughts or ideations. CIWA assessed. Blood alcohol level of 0.362. Decreased BUN. Ativan protocol. Patient will be admitted for medical management. Case discussedwith physician. ADmitting is Dr Mac - Lab Data Result diagrams: 06/20/20 22:52 06/20/20 22:53 Lab Results 06/20/20 06/20/20 06/20/20 Range/Units 22:43 22:52 22:53 WBC 5.7 (3.8-10.6) k/uL RBC 5.07 (4.30-5.90) m/uL Hgb 16.8 (13.0-17.5) gm/dL Hct 49.3 (39.0-53.0) % MCV 97.3 (80.0-100.0) fL MCH 33.2 (25.0-35.0) pg MCHC 34.1 (31.0-37.0) g/dL RDW 14.6 (11.5-15.5) % Plt Count 146 L (150-450) k/uL Neutrophils % 61 % Lymphocytes % 26 % Monocytes % 7 % Eosinophils % 2 % Basophils % 1 % Neutrophils # 3.5 (1.3-7.7) k/uL Lymphocytes # 1.5 (1.0-4.8) k/uL Monocytes # 0.4 (0-1.0) k/uL Eosinophils # 0.1 (0-0.7) k/uL Basophils # 0.1 (0-0.2) k/uL Sodium 140 (137-145) mmol/L Potassium 3.9 (3.5-5.1) mmol/L Chloride 107 (98-107) mmol/L Carbon Dioxide 20 L (22-30) mmol/L Anion Gap 13 mmol/L BUN 7 L (9-20) mg/dL Creatinine 0.68 (0.66-1.25) mg/dL Est GFR (CKD-EPI)AfAm >90 (>60 ml/min/1.73 sqM) Est GFR (CKD-EPI)NonAf >90 (>60 ml/min/1.73 sqM) Glucose 100 H (74-99) mg/dL Calcium 8.4 (8.4-10.2) mg/dL Magnesium 2.1 (1.6-2.3) mg/dL Total Bilirubin 0.5 (0.2-1.3) mg/dL AST 69 H (17-59) U/L ALT 49 (4-49) U/L Alkaline Phosphatase 80 (38-126) U/L Total Protein 7.5 (6.3-8.2) g/dL Albumin 4.6 (3.5-5.0) g/dL Lipase 480 H (23-300) U/L Urine Color Yellow Urine Appearance Clear (Clear) Urine pH 6.0 (5.0-8.0) Ur Specific [place] 1.007 (1.001-1.035) Urine Protein Trace H (Negative) Urine Glucose (UA) Negative (Negative) Urine Ketones Negative (Negative) Urine Blood Negative (Negative) Urine Nitrite Negative (Negative) Urine Bilirubin Negative (Negative) Urine Urobilinogen <2.0 (<2.0) mg/dL Ur Leukocyte Esterase Negative (Negative) Urine Opiates Screen Not Detected (NotDetected) Ur Oxycodone Screen Not Detected (NotDetected) Urine Methadone Screen Not Detected (NotDetected) Ur Propoxyphene Screen Not Detected (NotDetected) Ur Barbiturates Screen Not Detected (NotDetected) U Tricyclic Antidepress Not Detected (NotDetected) Ur Phencyclidine Scrn Not Detected (NotDetected) Ur Amphetamines Screen Not Detected (NotDetected) U Methamphetamines Scrn Not Detected (NotDetected) U Benzodiazepines Scrn Not Detected (NotDetected) Urine Cocaine Screen Not Detected (NotDetected) U Marijuana (THC) Screen Detected H (NotDetected) Serum Alcohol 370 H* mg/dL Disposition Clinical Impression: Alcohol intoxication Disposition: ADMITTED IP TO THIS HOSP Condition: Fair Instructions (If sedation given, give patient instructions): Alcohol Intoxication (ED) Additional Instructions: He will be admitted Is patient prescribed a controlled substance at d/c from ED?: No Referrals: None,Stated [Primary Care Provider] - 1-2 days Time of Disposition: 01:43
[2020-06-20] MEDS ORDERED: LORazepam 2 MG/ML INJ IM STA (22:37)
[2020-06-20] MEDS ORDERED: LORazepam 2 MG/ML INJ IV PRN ×3 (22:40)
[2020-06-20] MEDS ORDERED: THIAMINE 100 MG/ML 2 ML VIAL IM ONE (23:00)
[2020-06-20 23:03] LABS: Appearance,Urine Clear (Clear); Bilirubin,Urine Negative (Negative); Blood,Urine Negative (Negative); Color,Urine Yellow; Glucose,Urine (UA) Negative (Negative); Ketones,Urine Negative (Negative); Leukocyte Esterase,Urine Negative (Negative); Nitrite,Urine Negative (Negative); Protein,Urine Trace (Negative); Specific Gravity,Urine 1.007 (1.001-1.035); Urobilinogen,Urine <2.0 mg/dL (<2.0)
[2020-06-20 23:21] LABS: Amphetamine Screen,Urine Not Detected (NotDetected); Barbiturate Screen,Urine Not Detected (NotDetected); Benzodiazepines Screen,Urine Not Detected (NotDetected); Cocaine Screen,Urine Not Detected (NotDetected); Methadone Screen, Urine Not Detected (NotDetected); Opiate Screen,Urine Not Detected (NotDetected); Oxycodone Screen, Urine Not Detected (NotDetected); Phencyclidine Screen,Urine Not Detected (NotDetected); Tricyclic Antidepressant,Urine Not Detected (NotDetected); Urn Cannabinoid Scrn Detected (NotDetected)
[2020-06-20 23:26] LABS: Basophils # (A) 0.1 k/uL (0-0.2); Basophils % (A) 1 %; Eosinophils # (A) 0.1 k/uL (0-0.7); Eosinophils % (A) 2 %; HCT 49.3 % (39.0-53.0); HGB 16.8 gm/dL (13.0-17.5); Lymphocytes # (A) 1.5 k/uL (1.0-4.8); Lymphocytes % (A) 26 %; MCH 33.2 pg (25.0-35.0); MCHC 34.1 g/dL (31.0-37.0); MCV 97.3 fL (80.0-100.0); Mean Platelet Volume 8.4; Monocytes # (A) 0.4 k/uL (0-1.0); Monocytes % (A) 7 %; Neutrophils # (A) 3.5 k/uL (1.3-7.7); Neutrophils % (A) 61 %; Platelet Count 146 k/uL (150-450); RBC 5.07 m/uL (4.30-5.90); RDW 14.6 % (11.5-15.5); WBC 5.7 k/uL (3.8-10.6)
[2020-06-20 23:27] LABS: ALT 49 U/L (4-49); AST 69 U/L (17-59); African American GFR (CKD) >90 (>60 ml/min/1.73 sqM); Albumin 4.6 g/dL (3.5-5.0); Alkaline Phosphatase 80 U/L (38-126); Anion Gap 13 mmol/L; Blood Urea Nitrogen 7 mg/dL (9-20); Calcium 8.4 mg/dL (8.4-10.2); Carbon Dioxide 20 mmol/L (22-30); Chloride 107 mmol/L (98-107); Glucose 100 mg/dL (74-99); Magnesium 2.1 mg/dL (1.6-2.3); Non-African American GFR(CKD) >90 (>60 ml/min/1.73 sqM); Potassium 3.9 mmol/L (3.5-5.1); Sodium 140 mmol/L (137-145); Total Bilirubin 0.5 mg/dL (0.2-1.3); Total Protein 7.5 g/dL (6.3-8.2)
[2020-06-20 23:56] LABS: Alcohol 370 mg/dL
[2020-06-21] MEDS ORDERED: NALOXONE 0.4 MG/ML 1 ML VIAL IV PRN (00:38)
[2020-06-21 01:55] VITALS: RESP 16
[2020-06-21 10:19] VITALS: BP 111/72; PULSE 95; TEMP 98
--- NOTE | 2020-06-21 13:34 | P.HPIM ---
History of Present Illness Please consider this note as combined H&P and discharge summary Patient is a 50 years old male who was admitted from emergency room for alcohol intoxication. Patient initially was brought by the police department. Patient was admitted under the care of And Is Assigned to Me This Morning When I Came to See the Patient He Already Left by Signing Leaving AMA. I Didn't Have a Chance to Meet Staple or Evaluate Him, However Already 1 the ED note it states (atient denies any homicidal suicidal thoughts or ideations) Past Medical History Past Medical History: Unable to Obtain History of Any Multi-Drug Resistant Organisms: None Reported Past Surgical History: Orthopedic Surgery Additional Past Surgical History / Comment(s): LEFT KNEE SURGERY Past Psychological History: No Psychological Hx Reported Smoking Status: Current every day smoker Past Alcohol Use History: Abuse, Daily, Heavy Past Drug Use History: Marijuana Medications and Allergies Home Medications Medication Instructions Recorded Confirmed Type No Known Home Medications 08/30/15 06/21/20 History Allergies Allergy/AdvReac Type Severity Reaction Status Date / Time venom-honey bee Allergy Unknown Verified 06/21/20 08:37 [bee venom (honey bee)] Physical Exam Vitals: Vital Signs Temp Pulse Pulse Resp BP BP Pulse Ox 06/21/20 08:00 95 16 06/21/20 07:00 98.0 F 95 16 111/72 92 L 06/21/20 03:45 94 16 06/21/20 02:12 97.8 F 94 16 104/71 95 06/21/20 01:55 968.1 F H 99 16 87/57 97 06/20/20 21:39 97.0 F L 106 H 18 163/110 96 Intake and Output 06/20/20 06/21/20 06/21/20 22:59 06:59 14:59 Output Total 200 Balance -200 Output: Urine 200 Other: Voiding Method Urinal Urinal Weight 83.915 kg 83.915 kg Results CBC & Chem 7: 06/20/20 22:52 06/20/20 22:53 Labs: Abnormal Lab Results - Last 24 Hours (Table) 06/20/20 06/20/20 06/20/20 Range/Units 22:43 22:52 22:53 Plt Count 146 L (150-450) k/uL Carbon Dioxide 20 L (22-30) mmol/L BUN 7 L (9-20) mg/dL Glucose 100 H (74-99) mg/dL AST 69 H (17-59) U/L Lipase 480 H (23-300) U/L Urine Protein Trace H (Negative) U Marijuana (THC) Screen Detected H (NotDetected) Serum Alcohol 370 H* mg/dL Thrombosis Risk Factor Assmnt - Choose All That Apply Any of the Below Risk Factors Present?: Yes Each Factor Represents 1 point: Age 41-60 years, Obesity (BMI >25) Thrombosis Risk Factor Assessment Total Risk Factor Score: 2 Thrombosis Risk Factor Assessment Level: Low Risk
[2020-06-21] MEDS ORDERED: THIAMINE 100 MG TAB PO SCH (17:30)
== END 2020-06-21 10:15 | disposition left against medical advice (07) ==
LOC: EC 21:31 → 4SSUR 06-21 00:39
PROVIDERS: ADMIT Internal Medicine; ATTEND Internal Medicine
DX: F10.129 Alcohol abuse with intoxication, unspecified (principal); Z53.29 Procedure and treatment not carried out because of patient's decision for other reasons; E66.9 Obesity, unspecified; F17.200 Nicotine dependence, unspecified, uncomplicated; Y90.8 Blood alcohol level of 240 mg/100 ml or more; Z03.818 Encounter for observation for suspected exposure to other biological agents ruled out; Z91.030 Bee allergy status; Z98.890 Other specified postprocedural states; Z68.27 Body mass index [BMI] 27.0-27.9, adult
CPT/HCPCS: 96372 ×2; 96374; 99285; 36415; 80053; 83690; 83735; 85025; 81003; 80306; G0378; G0480; U0003; J2060 ×2; J3411; 80320

== ENCOUNTER 2020-08-19 19:44 | Inpatient (IN) | payer OTHER ==
[2020-08-19 22:14] LABS: Basophils # (A) 0.1 k/uL (0-0.2); Basophils % (A) 2 %; Eosinophils % (A) 0 %; HGB 17.5 gm/dL (13.0-17.5); Lymphocytes # (A) 0.8 k/uL (1.0-4.8); Lymphocytes % (A) 17 %; MCH 33.7 pg (25.0-35.0); MCHC 34.2 g/dL (31.0-37.0); MCV 98.3 fL (80.0-100.0); Mean Platelet Volume 7.9; Monocytes # (A) 0.3 k/uL (0-1.0); Monocytes % (A) 5 %; Neutrophils # (A) 3.5 k/uL (1.3-7.7); Neutrophils % (A) 73 %; Platelet Count 181 k/uL (150-450); RBC 5.19 m/uL (4.30-5.90); RDW 13.7 % (11.5-15.5); WBC 4.8 k/uL (3.8-10.6)
[2020-08-19 22:26] LABS: ALT 123 U/L (4-49); AST 337 U/L (17-59); African American GFR (CKD) >90 (>60 ml/min/1.73 sqM); Albumin 4.7 g/dL (3.5-5.0); Alkaline Phosphatase 103 U/L (38-126); Anion Gap 22 mmol/L; Blood Urea Nitrogen 12 mg/dL (9-20); Calcium 8.5 mg/dL (8.4-10.2); Carbon Dioxide 14 mmol/L (22-30); Chloride 103 mmol/L (98-107); Glucose 91 mg/dL (74-99); Non-African American GFR(CKD) >90 (>60 ml/min/1.73 sqM); Sodium 139 mmol/L (137-145); Total Bilirubin 0.9 mg/dL (0.2-1.3); Total Protein 7.8 g/dL (6.3-8.2)
[2020-08-19 22:40] LABS: Alcohol 431 mg/dL
--- NOTE | 2020-08-19 22:40 | ED ---
Alcohol HPI - General Chief Complaint: Alcohol Stated Complaint: ETOH Time Seen by Provider: 08/19/20 19:45 Source: patient, EMS Mode of arrival: EMS Limitations: no limitations - History of Present Illness Initial Comments: 50-year-old male who presents to the emergency room for alcohol intoxication. Patient states that he "needs someone to take care of him because he drank too much". Patient is aggressive with staff. States he drank a pint of whiskey and family became worried about him. Denies use of any other drugs. Remainder of the history is unable to be obtained because of the patient's significant intoxicated state - Related Data Home Medications Medication Instructions Recorded Confirmed No Known Home Medications 08/30/15 08/19/20 Allergies Allergy/AdvReac Type Severity Reaction Status Date / Time venom-honey bee Allergy Unknown Verified 08/19/20 23:12 [bee venom (honey bee)] Review of Systems ROS Statement: Those systems with pertinent positive or pertinent negative responses have been documented in the HPI. ROS Other: All systems not noted in ROS Statement are negative. Past Medical History Past Medical History: Unable to Obtain History of Any Multi-Drug Resistant Organisms: None Reported Past Surgical History: Orthopedic Surgery Additional Past Surgical History / Comment(s): LEFT KNEE SURGERY Past Psychological History: No Psychological Hx Reported Smoking Status: Current every day smoker Past Alcohol Use History: Abuse, Daily, Heavy Past Drug Use History: Marijuana - Past Family History Family Family Medical History: Unable to Obtain General Exam Limitations: altered mental status General appearance: appears intoxicated Head exam: Present: atraumatic, normocephalic, normal inspection Eye exam: Present: normal appearance, PERRL, EOMI. Absent: scleral icterus, conjunctival injection, periorbital swelling Respiratory exam: Present: normal lung sounds bilaterally. Absent: respiratory distress, wheezes, rales, rhonchi, stridor Cardiovascular Exam: Present: regular rate, normal rhythm, normal heart sounds. Absent: systolic murmur, diastolic murmur, rubs, gallop, clicks GI/Abdominal exam: Present: soft, normal bowel sounds. Absent: distended, tenderness, guarding, rebound, rigid Extremities exam: Present: normal inspection, full ROM, normal capillary refill. Absent: tenderness, pedal edema, joint swelling, calf tenderness Neurological exam: Present: altered Psychiatric exam: Present: other (belligerent, aggressive with staff, uncooperative, angry) Course Vital Signs 08/19/20 08/20/20 08/20/20 19:44 00:37 01:00 Temperature 99.1 F 97.9 F Pulse Rate 91 80 Pulse Rate [ 112 H Right] Respiratory 20 18 16 Rate Blood Pressure 149/97 128/70 Blood Pressure 132/82 [Right Arm] O2 Sat by Pulse 95 93 L 88 L Oximetry Medical Decision Making - Medical Decision Making Upon arrival the patient is placed into room 14. His BAT is noted to be 353. ER able to obtain the phone number of a family friend. We requested he come to the hospital to pick the patient up however he states that he is too significantly intoxicated and does not feel comfortable doing this. We request that the patient's come to the hospital however the friend reports that the wants nothing to do with the patient. We are unable to contact any additional family or friends. Because of this we did complete laboratory studies which demonstrates the patient's blood alcohol level to be 431. Because of the significant intoxication with multiple hours until the patient is sober I did recommend hospital admission. The patient was agitated in the emergency department and was given 2 g of Ativan, 50 mg of Benadryl and 10 mg of Geodon. Patient was then transported to the floor in stable condition - Lab Data Result diagrams: 08/20/20 04:59 08/20/20 04:59 Lab Results 08/19/20 08/19/20 08/20/20 Range/Units 21:56 21:56 04:59 WBC 4.8 5.8 (3.8-10.6) k/uL RBC 5.19 4.81 (4.30-5.90) m/uL Hgb 17.5 16.6 (13.0-17.5) gm/dL Hct 51.0 47.7 (39.0-53.0) % MCV 98.3 99.1 (80.0-100.0) fL MCH 33.7 34.4 (25.0-35.0) pg MCHC 34.2 34.7 (31.0-37.0) g/dL RDW 13.7 14.5 (11.5-15.5) % Plt Count 181 147 L (150-450) k/uL Neutrophils % 73 63 % Lymphocytes % 17 27 % Monocytes % 5 6 % Eosinophils % 0 1 % Basophils % 2 1 % Neutrophils # 3.5 3.7 (1.3-7.7) k/uL Lymphocytes # 0.8 L 1.6 (1.0-4.8) k/uL Monocytes # 0.3 0.4 (0-1.0) k/uL Eosinophils # 0.0 0.0 (0-0.7) k/uL Basophils # 0.1 0.1 (0-0.2) k/uL Sodium 139 (137-145) mmol/L Potassium 5.0 (3.5-5.1) mmol/L Chloride 103 (98-107) mmol/L Carbon Dioxide 14 L (22-30) mmol/L Anion Gap 22 mmol/L BUN 12 (9-20) mg/dL Creatinine 0.78 (0.66-1.25) mg/dL Est GFR (CKD-EPI)AfAm >90 (>60 ml/min/1.73 sqM) Est GFR (CKD-EPI)NonAf >90 (>60 ml/min/1.73 sqM) Glucose 91 (74-99) mg/dL POC Glucose (mg/dL) (75-99) mg/dL POC Glu Buffer Chrome ID Calcium 8.5 (8.4-10.2) mg/dL Total Bilirubin 0.9 (0.2-1.3) mg/dL AST 337 H (17-59) U/L ALT 123 H (4-49) U/L Alkaline Phosphatase 103 (38-126) U/L Total Protein 7.8 (6.3-8.2) g/dL Albumin 4.7 (3.5-5.0) g/dL Serum Alcohol 431 H* mg/dL 08/20/20 08/20/20 Range/Units 04:59 09:56 WBC (3.8-10.6) k/uL RBC (4.30-5.90) m/uL Hgb (13.0-17.5) gm/dL Hct (39.0-53.0) % MCV (80.0-100.0) fL MCH (25.0-35.0) pg MCHC (31.0-37.0) g/dL RDW (11.5-15.5) % Plt Count (150-450) k/uL Neutrophils % % Lymphocytes % % Monocytes % % Eosinophils % % Basophils % % Neutrophils # (1.3-7.7) k/uL Lymphocytes # (1.0-4.8) k/uL Monocytes # (0-1.0) k/uL Eosinophils # (0-0.7) k/uL Basophils # (0-0.2) k/uL Sodium 136 L (137-145) mmol/L Potassium 4.4 (3.5-5.1) mmol/L Chloride 103 (98-107) mmol/L Carbon Dioxide 19 L (22-30) mmol/L Anion Gap 14 mmol/L BUN 10 (9-20) mg/dL Creatinine 0.75 (0.66-1.25) mg/dL Est GFR (CKD-EPI)AfAm >90 (>60 ml/min/1.73 sqM) Est GFR (CKD-EPI)NonAf >90 (>60 ml/min/1.73 sqM) Glucose 77 (74-99) mg/dL POC Glucose (mg/dL) 76 (75-99) mg/dL POC Glu Buffer Chrome ID Jan Mara Calcium 8.2 L (8.4-10.2) mg/dL Total Bilirubin (0.2-1.3) mg/dL AST (17-59) U/L ALT (4-49) U/L Alkaline Phosphatase (38-126) U/L Total Protein (6.3-8.2) g/dL Albumin (3.5-5.0) g/dL Serum Alcohol mg/dL Disposition Clinical Impression: Alcohol intoxication Disposition: [facility]ITT[facility] Condition: Stable Is patient prescribed a controlled substance at d/c from ED?: No Decision to Admit Reason: Admit from EC Decision Date: 08/19/20 Decision Time: 22:40
[2020-08-19] MEDS ORDERED: NALOXONE 0.4 MG/ML 1 ML VIAL IV PRN (22:42)
[2020-08-19] MEDS ORDERED: LORazepam 2 MG/ML INJ IV STA ×2 (22:52→23:19)
[2020-08-19] MEDS ORDERED: diphenhydrAMINE 50 MG/ML 1 ML VIAL IVP STA (22:52)
[2020-08-19] MEDS ORDERED: LORazepam 2 MG/ML INJ IV PRN ×2 (23:08)
[2020-08-19] MEDS ORDERED: THIAMINE 100 MG/ML 2 ML VIAL IM STA (23:08)
[2020-08-19] MEDS ORDERED: ZIPRASIDONE 20 MG VIAL IM STA (23:19)
[2020-08-20] MEDS: THIAMINE 100 MG TAB PO SCH ×2 (00:18→08:18)
[2020-08-20] MEDS: SODIUM CHLORIDE 0.9% 1,000 ML IV SCH ×2 (01:27→11:06)
[2020-08-20] MEDS: LORazepam 2 MG/ML INJ IV PRN ×4 (02:10→13:04)
--- NOTE | 2020-08-20 03:29 | P.HPIM ---
History of Present Illness H&P Date: 08/20/20 Chief Complaint: Alcohol intoxication 50-year-old male unable to provide any meaningful history at this time due to severe intoxication and heavily medicated in the ED due to aggressive behavior History obtained by reviewing records from the ER. Patient came into the ED seeking help claimed that he drank too much alcohol ER attempted to call family however his friend did not feel comfortable coming and picking up due to severe alcohol intoxication, his didn't want to have anything to do with him and declined to help him. Patient was found to have elevated alcohol level in the 400 range he was becoming very aggressive to the staff he had to be medicated to be sedated patient was admitted to the hospital for close monitoring until sober I interviewed the patient on the medical floor patient was babbling random words did not make any sense he was sleeping easily arousable but heavily intoxicated and medicated cannot cooperate with the interview Review of Systems ROS unobtainable: due to mental status Past Medical History Past Medical History: Unable to Obtain History of Any Multi-Drug Resistant Organisms: None Reported Past Surgical History: Orthopedic Surgery Additional Past Surgical History / Comment(s): LEFT KNEE SURGERY Past Psychological History: No Psychological Hx Reported Smoking Status: Current every day smoker Past Alcohol Use History: Abuse, Daily, Heavy Past Drug Use History: Marijuana - Past Family History Family Family Medical History: Unable to Obtain Medications and Allergies Home Medications Medication Instructions Recorded Confirmed Type No Known Home Medications 08/30/15 08/19/20 History Allergies Allergy/AdvReac Type Severity Reaction Status Date / Time venom-honey bee Allergy Unknown Verified 08/19/20 23:12 [bee venom (honey bee)] Physical Exam Vitals: Vital Signs Temp Pulse Pulse Resp BP BP Pulse Ox 08/20/20 01:17 18 92 L 08/20/20 01:00 97.9 F 112 H 16 132/82 88 L 08/20/20 00:37 80 18 128/70 93 L 08/19/20 19:44 99.1 F 91 20 149/97 95 Intake and Output 08/19/20 08/19/20 08/20/20 14:59 22:59 06:59 Other: Voiding Method Toilet # Voids 1 Weight 81.647 kg Constitutional: Patient is severely intoxicated Eyes: Anicteric sclerae, moist conjunctiva, Pupils equal round reactive to light ENMT: NC/AT Neck: Deferred Lungs: Clear to auscultation Clear to percussion Normal respiratory effort, no accessory muscle use Cardiovascular: Heart regular in rate and rhythm, No murmurs, gallops, or rubs No peripheral edema Abdominal: Soft Nontender, no guarding, rebound or rigidity Abdomen moving with respiration Normoactive bowel sounds No hepatomegaly, No splenomegaly No palpable mass No abdominal wall hernia noted Skin: Normal temperature, tone, texture, turgor No induration No subcutaneous nodules No rash, lesions No ulcers Extremities: No digital cyanosis No clubbing Pedal pulses intact and symmetrical Radial pulses intact and symmetrical No calf tenderness Psychiatric: Patient is severely intoxicated with alcohol Neuro could not perform proper neuro exam at this time Lymphatics: no palpable cervical or supraclavicular , or inguinal lymph nodes Results CBC & Chem 7: 08/19/20 21:56 08/19/20 21:56 Labs: Abnormal Lab Results - Last 24 Hours (Table) 08/19/20 08/19/20 Range/Units 21:56 21:56 Lymphocytes # 0.8 L (1.0-4.8) k/uL Carbon Dioxide 14 L (22-30) mmol/L AST 337 H (17-59) U/L ALT 123 H (4-49) U/L Serum Alcohol 431 H* mg/dL Assessment and Plan Assessment: Acute severe alcohol intoxication with delirium Aggressive behavior Plan Close monitoring 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
[2020-08-20 05:33] LABS: Basophils # (A) 0.1 k/uL (0-0.2); Basophils % (A) 1 %; Eosinophils % (A) 1 %; HCT 47.7 % (39.0-53.0); HGB 16.6 gm/dL (13.0-17.5); Lymphocytes # (A) 1.6 k/uL (1.0-4.8); Lymphocytes % (A) 27 %; MCH 34.4 pg (25.0-35.0); MCHC 34.7 g/dL (31.0-37.0); MCV 99.1 fL (80.0-100.0); Mean Platelet Volume 7.8; Monocytes # (A) 0.4 k/uL (0-1.0); Monocytes % (A) 6 %; Neutrophils # (A) 3.7 k/uL (1.3-7.7); Neutrophils % (A) 63 %; Platelet Count 147 k/uL (150-450); RBC 4.81 m/uL (4.30-5.90); RDW 14.5 % (11.5-15.5); WBC 5.8 k/uL (3.8-10.6)
[2020-08-20 05:42] LABS: African American GFR (CKD) >90 (>60 ml/min/1.73 sqM); Anion Gap 14 mmol/L; Blood Urea Nitrogen 10 mg/dL (9-20); Calcium 8.2 mg/dL (8.4-10.2); Carbon Dioxide 19 mmol/L (22-30); Chloride 103 mmol/L (98-107); Glucose 77 mg/dL (74-99); Non-African American GFR(CKD) >90 (>60 ml/min/1.73 sqM); Potassium 4.4 mmol/L (3.5-5.1); Sodium 136 mmol/L (137-145)
[2020-08-20] MEDS ORDERED: HALOPERIDOL LACTATE 5 MG/ML 1 ML VIAL IM STA (07:10)
[2020-08-20] MEDS ORDERED: HEPARIN SODIUM,PORCINE 5,000 UNIT/ML 1 ML VIAL SQ SCH (08:00)
[2020-08-20 09:58] LABS: Glucose,Whole Blood 76 mg/dL (75-99)
[2020-08-20] MEDS ORDERED: PANTOPRAZOLE 40 MG/10 ML VIAL IVP SCH (10:15)
[2020-08-20] MEDS: ENOXAPARIN 40 MG/0.4 ML SYRINGE SQ SCH ×2 (11:10→11:13)
[2020-08-20 13:07] VITALS: TEMP 99.9
--- NOTE | 2020-08-20 13:19 | P.CN ---
Psychiatric Consult - . Consult date: 08/20/20 Consult:: 08/20/20 13:06 IDENTIFYING DATA: This patient is a 50-year-old male with a significant history of alcohol use, lives in a house is unmarried has 1 kid is unemployed collecting social security REASON FOR REFERRAL: Psychiatry was consulted for substance abuse with recurrent admissions. HISTORY OF PRESENT ILLNESS: The patient presented to the hospital yesterday for alcohol intoxication. Patient was apparently aggressive and claimed to the ER staff that he drank a pint of whiskey previously. Patient's blood alcohol level was 431 on admission. Patient's AST/ALT was 337/123. Patient's was contacted about patient's condition and claimed that she did not want to pick the patient up and did not want and have anything to do with him. Psychiatry spoke with patient's nurse prior to speaking with patient who claims that patient has been withdrawing from alcohol and his CIWA scores have been elevated and is receiving Ativan. Patient was seen at the bedside with a sitter and appeared to be fairly lethargic and minimally responsive to information writer. He did answer some questions appropriately. He claims that he has been drinking heavily at home and states that he has been drinking approximately "a fifth or 2 of whiskey a day". He states that this has been going on for years. He was fairly guarded and vague about it. Patient was also vague about the reason why came in the hospital and mainly stated "I don't know". He denied any stressors going on at home does not know why the hospital. He denies any depression and any anxiety at this time. He is admitting to some withdrawal symptoms including mild tremor and general discomfort. He has been taking Ativan for withdrawal. He denies any axis to guns or weapons at home. He states that his sleep is poor. He claims that he has been to rehab in the past several times and claims that he would be willing to go to [place] upon discharge. At this time patient denies any suicidal or homical ideations, intent or plan. Patient denies any auditory, visual hallucinations and denies any paranoia or delusions. Patients admits to using alcohol as mentioned above, marijuana occasionally and cigarettes daily. PAST PSYCHIATRIC HISTORY: Patient has a a history of alcohol abuse. Patient denies being on any psychiatric medications. Patient denies any previous psychiatric hospitalizations. Patient denies any psychiatric outpatient follow- up. Patient denies any history of suicide attempts in the past. PAST MEDICAL HISTORY: denies. ALLERGIES: as per EMR. CHEMICAL DEPENDENCY HISTORY: as per HPI. FAMILY PSYCHIATRIC/SUBSTANCE USE HISTORY: denies SOCIAL HISTORY: Patient was born and raised in [place], he states that he graduated from high school. He claims that he currently lives in a house is unmarried has 1 kid and is currently unemployed collecting Social Security. MENTAL STATUS EXAM: General Appearance: Patient appears to be stated age is lethargic, guarded/evasive, difficult to engage with, poor attention span. Patient appears to have poor hygiene and grooming wearing hospital gown with poor eye contact. Behavior: Patient is calmly lying in bed without any agitated behavior. Appears to be fairly lethargic. Speech: Patient's speech is fluent and nonpressured. Mood/Affect: Patient reports their mood is "ok", affect is congruent Suicidality/Homicidality: Patient denies having any suicidal or homicidal ideation intent or plan. Perceptions: Patient denies any visual hallucinations and denies any auditory hallucinations Though content/process: [place], poverty of content, logical. Guarded/evasive. Memory and concentration: AOX3, grossly intact for the purposes of this session. Judgment and insight: Chronically poor, prognosis is poor IMPRESSIONS: Alcohol use disorder, moderate-severe, currently in withdrawal Cannabis use disorder Nicotine dependence PLAN: -At this time patient DOES NOT meet criteria for inpatient psychiatric admission. -Would recommend the following medication changes/additions: At this time no psychiatric medications are indicated. Continue with [facility] protocol with when necessary Ativan for alcohol withdrawal. -Continue 1:1 sitter for safety, this can be discontinued by primary care team the patient is appropriate and not combative. -lumber yard worker to provide patient with outpatient mental health/psychiatry resources for appropriate follow up upon discharge -Contact [employer] spoke with patient about substance abuse and the harmful effects on medical and mental health, patient verbally understood and agreed. lumber yard worker to provide patient with access line number to call for inpatient substance rehab as patient is interested in going to [place] for rehab. -Psychiatry will sign off at this time -Please contact with any questions. 08/20/20 13:13
--- NOTE | 2020-08-20 14:00 | P.CNPUL ---
History of Present Illness Consult date: 08/20/20 Requesting physician: Emerson Interiano Chief complaint: Acute alcohol withdrawal History of present illness: 50-year-old white male patient, with significant history of alcohol abuse, with history of of multiple ER visits related to acute alcohol intoxication, usually patient is brought by the police related to patient's aggressive behavior while intoxicated, or falls while intoxicated. On 08/19/2020 patient presented to the emergency department per EMS for acute alcohol intoxication. Apparently patient's family called the ambulance because they were concerned patient had drank too much. Reportedly patient drank a pint of whiskey. Patient was aggressive with staff. He denied use of any other drugs. His alcohol level was 431. His CBC was unremarkable for the most part, with the exception of lymphocyte count of 0.8, CO2 was only 14, the rest of electrolytes and renal profile were within normal limits, AST was elevated at 337, ALT was 123, alkaline phosphatase was 103. Vital signs have been stable, patient has been afebrile with the exception of mild tachycardia patient is in sinus mechanism. He is on room air, does not appear to be in any respiratory distress. This morning the attending physician was concerned about patient's elevated C was scale of 22, patient has required hourly administration of Ativan per CIWA protocol, patient had been aggressive with staff. He also received a dose of Haldol. Patient was transferred to the intensive care unit for closer monitoring. He is currently somnolent, he is arousable to repeated verbal stimulation, appears to be in no acute distress, mildly tachycardic, hemodynamically stable. levi maker is at the bedside, is currently receiving 0.9 and was seen at a rate of 150 ML per hour, Thiamine has been started. Review of Systems ROS unobtainable: due to mental status All systems: negative Constitutional: Denies chills, Denies fever Eyes: denies blurred vision, denies pain Ears, nose, mouth and throat: Denies headache, Denies sore throat Cardiovascular: Denies chest pain, Denies shortness of breath Respiratory: Denies cough Gastrointestinal: Denies abdominal pain, Denies diarrhea, Denies nausea, Denies vomiting Musculoskeletal: Denies myalgias Integumentary: Denies pruritus, Denies rash Neurological: Denies numbness, Denies weakness Psychiatric: Denies anxiety, Denies depression Endocrine: Denies fatigue, Denies weight change Past Medical History Past Medical History: Unable to Obtain History of Any Multi-Drug Resistant Organisms: None Reported Past Surgical History: Orthopedic Surgery Additional Past Surgical History / Comment(s): LEFT KNEE SURGERY Past Anesthesia/Blood Transfusion Reactions: No Reported Reaction Smoking Status: Current every day smoker - Past Family History Family Family Medical History: Unable to Obtain Medications and Allergies Home Medications Medication Instructions Recorded Confirmed Type No Known Home Medications 08/30/15 08/19/20 History Allergies Allergy/AdvReac Type Severity Reaction Status Date / Time venom-honey bee Allergy Unknown Verified 08/19/20 23:12 [bee venom (honey bee)] Physical Exam Vitals: Vital Signs Temp Pulse Pulse Resp BP BP Pulse Ox 08/20/20 13:00 114 H 22 153/94 08/20/20 12:00 99.9 F H 101 H 23 137/82 95 08/20/20 11:00 108 H 13 128/78 08/20/20 10:00 98.4 F 101 H 18 135/87 96 08/20/20 09:57 96 12 08/20/20 04:54 98.7 F 98 16 128/82 96 08/20/20 01:17 18 92 L 08/20/20 01:00 97.9 F 112 H 16 132/82 88 L 08/20/20 00:37 80 18 128/70 93 L 08/19/20 19:44 99.1 F 91 20 149/97 95 Intake and Output 08/19/20 08/20/20 08/20/20 22:59 06:59 14:59 Intake Total 1240 1470 Output Total 200 250 Balance 1040 1220 Intake: Intake, IV Titration 450 1350 Amount Sodium Chloride 0.9% 1, 450 1350 000 ml @ 150 mls/hr IV . Q6H40M [facility] Rx#:[id number] Oral 790 120 Output: Urine 200 250 Other: Voiding Method Toilet Bedside Commode # Voids 1 Weight 81.647 kg 81.647 kg GENERAL EXAM: Somnolent, but arousable to repeated verbal stimuli, 50-year-old white male, on room air, with a pulse ox of 95%, slightly tachycardic on the monitor, in sinus mechanism, heart rate is 101-114 BPM, hemodynamically stable, comfortable in no apparent distress. HEAD: Normocephalic/atraumatic. EYES: Normal reaction of pupils, equal size. Conjunctiva pink, sclera white. NOSE: Clear with pink turbinates. THROAT: No erythema or exudates. NECK: No masses, no JVD, no thyroid enlargement, no adenopathy. CHEST: No chest wall deformity. Symmetrical expansion. LUNGS: Equal air entry with no crackles, wheeze, rhonchi or dullness. CVS: Regular rate and rhythm, normal S1 and S2, no gallops, no murmurs, no rubs ABDOMEN: Soft, nontender. No hepatosplenomegaly, normal bowel sounds, no g uarding or rigidity. EXTREMITIES: No clubbing, no edema, no cyanosis, 2+ pulses and upper and lower extremities. MUSCULOSKELETAL: Muscle strength and tone normal. SPINE: No scoliosis or deformity SKIN: No rashes CENTRAL NERVOUS SYSTEM: Confused, lethargic but arousable, No focal deficits, tone is normal in all 4 extremities. Results - Laboratory Findings CBC and BMP: 08/20/20 04:59 08/20/20 04:59 Abnormal lab findings: Abnormal Labs 08/19/20 08/19/20 08/20/20 21:56 21:56 04:59 Plt Count 147 L Lymphocytes # 0.8 L Sodium Carbon Dioxide 14 L Calcium AST 337 H ALT 123 H Serum Alcohol 431 H* 08/20/20 04:59 Plt Count Lymphocytes # Sodium 136 L Carbon Dioxide 19 L Calcium 8.2 L AST ALT Serum Alcohol Assessment and Plan Plan: Assessment: #1. Acute alcohol intoxication with agitation, and aggressive behavior, alcohol level on admission was 431. #2. Acute alcohol withdrawal #3. Multiple previous ER visits for acute alcohol intoxication #4. Chronic and ongoing EtOH abuse #5. Elevated liver enzymes including AST and ALT likely related to chronic EtOH abuse #6. Anion gap metabolic acidosis possibly related to alcoholic ketoacidosis and dehydration, improving with hydration #7. Nicotine dependence #8. Cannabis use disorder Plan: Continue current medical treatment, CIWA protocol, Ativan per CIWA, thiamine replacement, continue IV hydration, maintain aspiration precautions, will consult psychiatric services history of substance abuse, and recurrent hospital visits for acute alcohol intoxication, agitation, aggressive behavior, falls. Continue campus safety officer at the bedside, maintain safety precautions. We'll continue to closely monitor in the intensive care unit and try to manage patient with doses of Ativan and Haldol. We'll add GI and DVT prophylaxis I performed a history & physical examination of the patient and discussed their management with my nurse practitioner, Catrina Cooper. I reviewed the nurse practitioner's note and agree with the documented findings and plan of care. Lung sounds are positive for clear breath sounds. The findings and the impression was discussed with the patient. I attest to the documentation by the nurse practitioner. Time with Patient: Greater than 30
[2020-08-20 15:02] VITALS: BP 135/84; PULSE 109; RESP 26
== END 2020-08-20 16:26 | disposition left against medical advice (07) | DRG 894 ==
LOC: EC 19:44 → 6NMEDSUR 22:59 → 2SICU 08-20 09:46 → OBSVTOIN 08-20 11:00
PROVIDERS: ADMIT Internal Medicine; ATTEND Internal Medicine
DX: F10.221 Alcohol dependence with intoxication delirium (principal); E87.2 Acidosis; F10.239 Alcohol dependence with withdrawal, unspecified; F17.200 Nicotine dependence, unspecified, uncomplicated; Y90.8 Blood alcohol level of 240 mg/100 ml or more; K70.10 Alcoholic hepatitis without ascites; E86.0 Dehydration; F12.10 Cannabis abuse, uncomplicated; Z91.030 Bee allergy status; Z98.890 Other specified postprocedural states
CPT/HCPCS: 36415; 80048; 80053; 80320; 85025; 96374; 96375; 99285

== ENCOUNTER 2020-10-21 17:50 | Inpatient (IN) | payer OTHER ==
[2020-10-21 19:27] LABS: Glucose,Whole Blood 137 mg/dL (75-99)
[2020-10-21] MEDS ORDERED: LORazepam 2 MG/ML INJ IV STA (19:35)
[2020-10-21 19:37] LABS: Basophils # (A) 0.1 k/uL (0-0.2); Basophils % (A) 1 %; Eosinophils # (A) 0.2 k/uL (0-0.7); Eosinophils % (A) 2 %; HCT 44.2 % (39.0-53.0); HGB 14.8 gm/dL (13.0-17.5); Lymphocytes # (A) 1.8 k/uL (1.0-4.8); Lymphocytes % (A) 15 %; MCH 34.7 pg (25.0-35.0); MCHC 33.5 g/dL (31.0-37.0); MCV 103.4 fL (80.0-100.0); Macrocytosis Slight; Mean Platelet Volume 9.6; Monocytes # (A) 1.3 k/uL (0-1.0); Monocytes % (A) 11 %; Neutrophils # (A) 8.3 k/uL (1.3-7.7); Neutrophils % (A) 69 %; Platelet Count 144 k/uL (150-450); RBC 4.27 m/uL (4.30-5.90); RDW 13.8 % (11.5-15.5); WBC 11.9 k/uL (3.8-10.6)
[2020-10-21 19:53] LABS: AST 67 U/L (17-59); African American GFR (CKD) >90 (>60 ml/min/1.73 sqM); Albumin 4.4 g/dL (3.5-5.0); Alcohol <10 mg/dL; Alkaline Phosphatase 74 U/L (38-126); Anion Gap 24 mmol/L; Blood Urea Nitrogen 11 mg/dL (9-20); Calcium 9.7 mg/dL (8.4-10.2); Carbon Dioxide 13 mmol/L (22-30); Chloride 100 mmol/L (98-107); Glucose 142 mg/dL (74-99); Non-African American GFR(CKD) >90 (>60 ml/min/1.73 sqM); Potassium 3.6 mmol/L (3.5-5.1); Sodium 137 mmol/L (137-145); Total Bilirubin 0.7 mg/dL (0.2-1.3); Total Protein 7.2 g/dL (6.3-8.2)
[2020-10-21 19:59] LABS: ALT 84 U/L (4-49)
[2020-10-21 20:03] LABS: INR 0.9 (<1.2); Prothrombin Time 9.5 sec (9.0-12.0)
[2020-10-21 20:17] LABS: Partial Thromboplastin Time 19.4 sec (22.0-30.0)
--- NOTE | 2020-10-21 20:31 | CT ---
EXAMINATION TYPE: CT brain cspine wo con DATE OF EXAM: 10/21/2020 COMPARISON: 02/06/2019 HISTORY: Head injury/seizure. Pt not cooperative in staying still for exam. CT DLP: 1903.6 mGycm Automated exposure control for dose reduction was used. Images obtained of the brain and cervical spine without contrast. Ventricles have normal size. There is no mass effect nor midline shift. There is no sign of intracran ial hemorrhage. The calvarium is intact. Cervical vertebra have normal spacing and alignment. Exam limited slightly by motion. Posterior eleme nts are intact. Facet joints are intact. There is mild spurring anteriorly at C5-6 and C6-7. There is normal aeration of the mastoid sinuses. Skull base is intact. IMPRESSION: Negative CT scan of the brain. Mild degenerative disc changes in the cervical spine. No fracture. No significant change compared to old exam.
[2020-10-21 21:14] LABS: Appearance,Urine Cloudy (Clear); Bilirubin,Urine Negative (Negative); Blood,Urine Negative (Negative); Budding Yeast,Urine Few /hpf; Color,Urine Yellow; Glucose,Urine (UA) Negative (Negative); Ketones,Urine Negative (Negative); Leukocyte Esterase,Urine Negative (Negative); Nitrite,Urine Negative (Negative); Protein,Urine Trace (Negative); RBC,Urine <1 /hpf (0-5); Specific Gravity,Urine 1.008 (1.001-1.035); Urobilinogen,Urine <2.0 mg/dL (<2.0); WBC,Urine 1 /hpf (0-5)
[2020-10-21 21:25] LABS: Amphetamine Screen,Urine Not Detected (NotDetected); Barbiturate Screen,Urine Not Detected (NotDetected); Benzodiazepines Screen,Urine Not Detected (NotDetected); Cocaine Screen,Urine Not Detected (NotDetected); Methadone Screen, Urine Not Detected (NotDetected); Opiate Screen,Urine Not Detected (NotDetected); Oxycodone Screen, Urine Not Detected (NotDetected); Phencyclidine Screen,Urine Not Detected (NotDetected); Tricyclic Antidepressant,Urine Not Detected (NotDetected); Urn Cannabinoid Scrn Detected (NotDetected)
--- NOTE | 2020-10-21 21:35 | ED ---
General Adult HPI - General Chief complaint: Fall Stated complaint: Fall Time Seen by Provider: 10/21/20 18:56 Source: patient, EMS Mode of arrival: EMS Limitations: no limitations - History of Present Illness Initial comments: 50-year-old male presents to the emergency department via EMS for evaluation of a head injury status post fall. Patient arrives in a rigid c-collar applied per EMS due to the mechanism of injury. Denies neck and back pain. He is unable to recall events surrounding his fall. States he is withdrawing from alcohol. Limited information was obtained from patient due to seizure activity during initial evaluation. - Related Data Home Medications Medication Instructions Recorded Confirmed No Known Home Medications 08/30/15 10/21/20 Allergies Allergy/AdvReac Type Severity Reaction Status Date / Time venom-honey bee Allergy Unknown Verified 10/21/20 20:55 [bee venom (honey bee)] Review of Systems ROS Statement: Those systems with pertinent positive or pertinent negative responses have been documented in the HPI. ROS Other: All systems not noted in ROS Statement are negative. Past Medical History Past Medical History: Unable to Obtain History of Any Multi-Drug Resistant Organisms: None Reported Past Surgical History: Orthopedic Surgery Additional Past Surgical History / Comment(s): LEFT KNEE SURGERY Past Anesthesia/Blood Transfusion Reactions: No Reported Reaction Past Psychological History: No Psychological Hx Reported Smoking Status: Current every day smoker Past Alcohol Use History: Abuse, Daily, Heavy Past Drug Use History: Marijuana - Past Family History Family Family Medical History: Unable to Obtain General Exam Limitations: altered mental status General appearance: other (Initially patient was alert, however, during exam patient had a 15 -20 episode of unresponsiveness followed by 90 seconds of tonic-clonic seizure activity. Was then given Ativan and remains groggy.) Expanded Head exam: Present: laceration (Left posterior parietal laceration), hematoma (Posterior occipital hematoma). Absent: raccoon eyes Eye exam: Present: normal appearance, PERRL Pupils: Present: normal accommodation Expanded Neck exam: Present: other (Arrives with Rigid cervical collar in place ). Abs ent: tenderness, midline deformity Respiratory exam: Present: normal lung sounds bilaterally. Absent: respiratory distress, wheezes, rales, rhonchi, stridor Cardiovascular Exam: Present: regular rate, normal rhythm, normal heart sounds. Absent: systolic murmur, diastolic murmur, rubs, gallop, clicks GI/Abdominal exam: Present: soft, normal bowel sounds, other (One episode of emesis). Absent: distended, tenderness, guarding, rebound, rigid Neurological exam: Present: other (Patient was initially alert and orientedx3 prior to seizure activity) Psychiatric exam: Present: anxious, other (Initially patient was anxious and abrupt prior to seizure) Skin exam: Present: warm, dry, normal color. Absent: rash Course Vital Signs 10/21/20 10/21/20 18:16 20:57 Temperature 99.2 F 98.3 F Pulse Rate 92 123 H Respiratory 18 20 Rate Blood Pressure 132/99 168/116 O2 Sat by Pulse 94 L 98 Oximetry Procedures - Laceration Laceration #1 Indication: laceration Site: scalp Size (cm): 10 Description: stellate Depth: simple, single layer Size of Sutures: other (markus) Number of Sutures: 11 Patient Tolerated Procedure: well, no complications Medical Decision Making - Medical Decision Making 50-year-old male presents to emergency department via EMS today for evaluation of head injury status post fall. Upon arrival patient is in a rigid c-collar with a bulky dressing applied to the posterior aspect his head. Patient states he is withdrawing from alcohol and is unable to recall the events preceding his fall. Patient does complain of nausea and has had one episode of vomiting while present in the department. Physical examination did reveal evidence of laceration of hematoma to the posterior scalp. During the initial evaluation of this patient he became unresponsive for approximately 20 seconds then developed tonic-clonic seizure activity lasting approximately 90 seconds. Following seizure activity patient did have sonorous breathing and appeared to be postic stephie. Patient was given 2 mg of Ativan IVP, placed on oxygen via nasal cannula and was accompanied to CT. No evidence of acute intracranial process on CT. C- spine was cleared as well. ETOH was <10. This patient's case was discussed with my attending; he is to be admitted with seizure precautions and CIWA protocol. Patient remains groggy but is arousable. He is now answering more questions stat es that his last drink was 4-5 days ago. Denies ever having a seizure before. Denies any other pain or injury. - Lab Data Result diagrams: 10/21/20 19:24 10/21/20 19:24 Lab Results 10/21/20 10/21/20 10/21/20 Range/Units 19:24 19:24 19:24 WBC 11.9 H (3.8-10.6) k/uL RBC 4.27 L (4.30-5.90) m/uL Hgb 14.8 (13.0-17.5) gm/dL Hct 44.2 (39.0-53.0) % MCV 103.4 H (80.0-100.0) fL MCH 34.7 (25.0-35.0) pg MCHC 33.5 (31.0-37.0) g/dL RDW 13.8 (11.5-15.5) % Plt Count 144 L (150-450) k/uL MPV 9.6 Neutrophils % 69 % Lymphocytes % 15 % Monocytes % 11 % Eosinophils % 2 % Basophils % 1 % Neutrophils # 8.3 H (1.3-7.7) k/uL Lymphocytes # 1.8 (1.0-4.8) k/uL Monocytes # 1.3 H (0-1.0) k/uL Eosinophils # 0.2 (0-0.7) k/uL Basophils # 0.1 (0-0.2) k/uL Macrocytosis Slight PT 9.5 (9.0-12.0) sec INR 0.9 (<1.2) APTT 19.4 L (22.0-30.0) sec Sodium 137 (137-145) mmol/L Potassium 3.6 (3.5-5.1) mmol/L Chloride 100 (98-107) mmol/L Carbon Dioxide 13 L (22-30) mmol/L Anion Gap 24 mmol/L BUN 11 (9-20) mg/dL Creatinine 0.93 (0.66-1.25) mg/dL Est GFR (CKD-EPI)AfAm >90 (>60 ml/min/1.73 sqM) Est GFR (CKD-EPI)NonAf >90 (>60 ml/min/1.73 sqM) Glucose 142 H (74-99) mg/dL POC Glucose (mg/dL) (75-99) mg/dL POC Glu Welt Rougher ID Calcium 9.7 (8.4-10.2) mg/dL Total Bilirubin 0.7 (0.2-1.3) mg/dL AST 67 H (17-59) U/L ALT 84 H (4-49) U/L Alkaline Phosphatase 74 (38-126) U/L Troponin I (0.000-0.034) ng/mL Total Protein 7.2 (6.3-8.2) g/dL Albumin 4.4 (3.5-5.0) g/dL Urine Color Urine Appearance (Clear) Urine pH (5.0-8.0) Ur Specific [place] (1.001-1.035) Urine Protein (Negative) Urine Glucose (UA) (Negative) Urine Ketones (Negative) Urine Blood (Negative) Urine Nitrite (Negative) Urine Bilirubin (Negative) Urine Urobilinogen (<2.0) mg/dL Ur Leukocyte Esterase (Negative) Urine RBC (0-5) /hpf Urine WBC (0-5) /hpf Urine Yeast (Budding) (None) /hpf Urine Opiates Screen (NotDetected) Ur Oxycodone Screen (NotDetected) Urine Methadone Screen (NotDetected) Ur Propoxyphene Screen (NotDetected) Ur Barbiturates Screen (NotDetected) U Tricyclic Antidepress (NotDetected) Ur Phencyclidine Scrn (NotDetected) Ur Amphetamines Screen (NotDetected) U Methamphetamines Scrn (NotDetected) U Benzodiazepines Scrn (NotDetected) Urine Cocaine Screen (NotDetected) U Marijuana (THC) Screen (NotDetected) Serum Alcohol <10 mg/dL 10/21/20 10/21/20 10/21/20 Range/Units 19:24 19:25 20:59 WBC (3.8-10.6) k/uL RBC (4.30-5.90) m/uL Hgb (13.0-17.5) gm/dL Hct (39.0-53.0) % MCV (80.0-100.0) fL MCH (25.0-35.0) pg MCHC (31.0-37.0) g/dL RDW (11.5-15.5) % Plt Count (150-450) k/uL MPV Neutrophils % % Lymphocytes % % Monocytes % % Eosinophils % % Basophils % % Neutrophils # (1.3-7.7) k/uL Lymphocytes # (1.0-4.8) k/uL Monocytes # (0-1.0) k/uL Eosinophils # (0-0.7) k/uL Basophils # (0-0.2) k/uL Macrocytosis PT (9.0-12.0) sec INR (<1.2) APTT (22.0-30.0) sec Sodium (137-145) mmol/L Potassium (3.5-5.1) mmol/L Chloride (98-107) mmol/L Carbon Dioxide (22-30) mmol/L Anion Gap mmol/L BUN (9-20) mg/dL Creatinine (0.66-1.25) mg/dL Est GFR (CKD-EPI)AfAm (>60 ml/min/1.73 sqM) Est GFR (CKD-EPI)NonAf (>60 ml/min/1.73 sqM) Glucose (74-99) mg/dL POC Glucose (mg/dL) 137 H (75-99) mg/dL POC Glu Welt Rougher ID Pamela Snider Calcium (8.4-10.2) mg/dL Total Bilirubin (0.2-1.3) mg/dL AST (17-59) U/L ALT (4-49) U/L Alkaline Phosphatase (38-126) U/L Troponin I 0.017 (0.000-0.034) ng/mL Total Protein (6.3-8.2) g/dL Albumin (3.5-5.0) g/dL Urine Color Yellow Urine Appearance Cloudy (Clear) Urine pH 7.0 (5.0-8.0) Ur Specific [place] 1.008 (1.001-1.035) Urine Protein Trace H (Negative) Urine Glucose (UA) Negative (Negative) Urine Ketones Negative (Negative) Urine Blood Negative (Negative) Urine Nitrite Negative (Negative) Urine Bilirubin Negative (Negative) Urine Urobilinogen <2.0 (<2.0) mg/dL Ur Leukocyte Esterase Negative (Negative) Urine RBC <1 (0-5) /hpf Urine WBC 1 (0-5) /hpf Urine Yeast (Budding) Few H (None) /hpf Urine Opiates Screen Not Detected (NotDetected) Ur Oxycodone Screen Not Detected (NotDetected) Urine Methadone Screen Not Detected (NotDetected) Ur Propoxyphene Screen Not Detected (NotDetected) Ur Barbiturates Screen Not Detected (NotDetected) U Tricyclic Antidepress Not Detected (NotDetected) Ur Phencyclidine Scrn Not Detected (NotDetected) Ur Amphetamines Screen Not Detected (NotDetected) U Methamphetamines Scrn Not Detected (NotDetected) U Benzodiazepines Scrn Not Detected (NotDetected) Urine Cocaine Screen Not Detected (NotDetected) U Marijuana (THC) Screen Detected H (NotDetected) Serum Alcohol mg/dL - EKG Data EKG shows normal: sinus rhythm Rate: normal EKG Comments: EKG was obtained at 1949 and shows normal sinus rhythm with a ventricular rate of 96, MI interval 182, QRS duration 90, QT/QTC 360/464. Interpreted it as abnormal ECG, inferior infarct cannot be ruled out. - Radiology Data Radiology results: report reviewed CT of the brain and C-spine without contrast was obtained. Impression per Dr. Banegas is a negative computed tomography scan of the brain. Mild degenerative disc changes in the cervical spine. No fracture. No significant change compared to old exam. Disposition Clinical Impression: Alcohol withdrawal seizure, Head injury Disposition: ADMITTED IP TO THIS [facility] Condition: Serious Referrals: None,Stated [Primary Care Provider] - 1-2 days Decision to Admit Reason: Admit from EC Decision Date: 10/21/20 Decision Time: 22:07
[2020-10-21] MEDS ORDERED: NALOXONE 0.4 MG/ML 1 ML VIAL IV PRN (21:39)
[2020-10-21] MEDS ORDERED: ONDANSETRON 4 MG/2 ML VIAL IVP PRN (21:39)
[2020-10-21] MEDS ORDERED: THIAMINE 100 MG/ML 2 ML VIAL IM STA (21:41)
[2020-10-21] MEDS ORDERED: LORazepam 2 MG/ML INJ IV PRN ×3 (21:41)
[2020-10-21] MEDS ORDERED: SODIUM CHLORIDE 0.9% 1,000 ML with MVI, ADULT NO.4 WITH VIT K 10 ML, THIAMINE 100 MG, F... IV ONE ×4 (22:30)
--- NOTE | 2020-10-22 01:28 | P.HPIM ---
History of Present Illness H&P Date: 10/22/20 Patient is a 50-year-old male with a PMH of EtOH abuse presented to the ED after a fall. Apparently, the patient's friend had seen him fall after which the friend activated EMS. The patient was brought in with a c-collar. The patient was noted to have a posterior scalp hematoma requiring 11 Caples. The patient also had a tonic-clonic seizure in the emergency room lasting for roughly 90 seconds. At time of interview, the patient reported feeling okay. He noted that his last drink was roughly 4 days ago and that he was trying to quit his drinking habit. He normally drinks multiple 24 ounce beers daily. He reported tongue bites due to the seizure along with urinary incontinence. Despite the head trauma, the patient denied headaches or pain aside from the tongue pain from the bites. He denied chest pain, shortness of breath, fever, chills, nausea, vomiting, abdominal pain. A head/cervical spine CT was essentially unremarkable. Laboratory evaluation revealed a WBC count of 11.9, hemoglobin 14.8, alcohol level less than 10, urine toxicology positive for marijuana, UA unremarkable, AST 67, ALT 84, platelets 144, and CO2 13. Review of Systems Pertinent positives and negatives as discussed in HPI, a complete review of systems was performed and all other systems are negative. Past Medical History Past Medical History: Unable to Obtain History of Any Multi-Drug Resistant Organisms: None Reported Past Surgical History: Orthopedic Surgery Additional Past Surgical History / Comment(s): LEFT KNEE SURGERY Past Anesthesia/Blood Transfusion Reactions: No Reported Reaction Past Psychological History: No Psychological Hx Reported Smoking Status: Current every day smoker Past Alcohol Use History: Abuse, Daily, Heavy Past Drug Use History: Marijuana - Past Family History Family Family Medical History: Unable to Obtain Medications and Allergies Home Medications Medication Instructions Recorded Confirmed Type No Known Home Medications 08/30/15 10/21/20 History Allergies Allergy/AdvReac Type Severity Reaction Status Date / Time venom-honey bee Allergy Unknown Verified 10/21/20 20:55 [bee venom (honey bee)] Physical Exam Vitals: Vital Signs Temp Pulse Resp BP Pulse Ox 10/22/20 00:16 98.0 F 93 16 118/79 97 10/21/20 21:50 98.6 F 87 18 127/90 100 10/21/20 20:57 98.3 F 123 H 20 168/116 98 11/25/20 18:16 99.2 F 92 18 132/99 94 L Intake and Output 10/21/20 10/21/20 10/22/20 14:59 22:59 06:59 Other: Weight 72.575 kg General: non toxic, no distress, appears at stated age, normal weight Derm: no unusual rashes, no unusual ecchymoses, warm, dry Head: Posterior scalp laceration noted with multiple markus, normocephalic, symmetric Eyes: EOMI, no lid lag, anicteric sclera, pupils equal round reactive to light ENT: Nose and ears atraumatic, no thrush, no pharyngeal erythema Neck: No thyromegaly, no cervical lymphadenopathy, trachea midline, supple Mouth: no lip lesion, mucus membranes moist, bilateral tongue bites noted Cardiovascular: S1S2 reg, no murmur, positive posterior tibial pulse bilateral, no edema, capillary refill less than 2 seconds Lungs: CTA bilateral, no rhonchi, no rales , no accessory muscle use Abdominal: soft, nontender to palpation, no guarding, no appreciable organomegaly, normal bowel sounds Ext: no gross muscle atrophy, muscle strength 5 out of 5 in all 4 extremities grossly, no contractures, Neuro: CN II-XI grossly intact, light touch intact all 4 extremities, fine outstretched hand tremor Psych: Alert, oriented to person and place, oriented to year but not to month or date Results CBC & Chem 7: 10/21/20 19:24 10/21/20 19:24 Labs: Abnormal Lab Results - Last 24 Hours (Table) 10/21/20 10/21/20 10/21/20 Range/Units 19:24 19:24 19:24 WBC 11.9 H (3.8-10.6) k/uL RBC 4.27 L (4.30-5.90) m/uL MCV 103.4 H (80.0-100.0) fL Plt Count 144 L (150-450) k/uL Neutrophils # 8.3 H (1.3-7.7) k/uL Monocytes # 1.3 H (0-1.0) k/uL APTT 19.4 L (22.0-30.0) sec Carbon Dioxide 13 L (22-30) mmol/L Glucose 142 H (74-99) mg/dL POC Glucose (mg/dL) (75-99) mg/dL AST 67 H (17-59) U/L ALT 84 H (4-49) U/L Urine Protein (Negative) Urine Yeast (Budding) (None) /hpf U Marijuana (THC) Screen (NotDetected) 10/21/20 10/21/20 Range/Units 19:25 20:59 WBC (3.8-10.6) k/uL RBC (4.30-5.90) m/uL MCV (80.0-100.0) fL Plt Count (150-450) k/uL Neutrophils # (1.3-7.7) k/uL Monocytes # (0-1.0) k/uL APTT (22.0-30.0) sec Carbon Dioxide (22-30) mmol/L Glucose (74-99) mg/dL POC Glucose (mg/dL) 137 H (75-99) mg/dL AST (17-59) U/L ALT (4-49) U/L Urine Protein Trace H (Negative) Urine Yeast (Budding) Few H (None) /hpf U Marijuana (THC) Screen Detected H (NotDetected) Assessment and Plan Plan: EtOH withdrawal seizure in setting of chronic EtOH abuse -WA protocol -Thiamine, folate, multivitamin -Fall, seizure, aspiration precautions -Advised patient of the importance of alcohol cessation -Start Librium -IVFs -Check electrolytes daily and replace as warranted Thrombocytopenia -Likely due to chronic alcohol use -Monitor for now DVT prophylaxis -Heparin subq The patient is admitted with an anticipated greater than 2 midnight stay for evaluation of EtOH withdrawal seizure CODE STATUS: Full Code Discussed with: Patient, RN Anticipated discharge date: 3-[address]: Home A total of 35 minutes was spent on the care of this complex patient more than 50% of the time was spent in counseling and care coordination.
[2020-10-22 03:31] LABS: HCT 37.4 % (39.0-53.0); HGB 12.9 gm/dL (13.0-17.5); MCH 34.5 pg (25.0-35.0); MCHC 34.4 g/dL (31.0-37.0); MCV 100.2 fL (80.0-100.0); Mean Platelet Volume 9.3; Platelet Count 117 k/uL (150-450); RBC 3.73 m/uL (4.30-5.90); RDW 13.9 % (11.5-15.5); WBC 5.8 k/uL (3.8-10.6)
[2020-10-22] MEDS: THIAMINE 100 MG TAB PO SCH ×2 (07:04→16:57)
[2020-10-22] MEDS: FOLIC ACID 1 MG TAB PO SCH (08:03)
[2020-10-22] MEDS: HEPARIN SODIUM,PORCINE 5,000 UNIT/ML 1 ML VIAL SQ SCH ×3 (08:04→23:22)
[2020-10-22 08:52] LABS: ALT 83 U/L (4-49); African American GFR (CKD) >90 (>60 ml/min/1.73 sqM); Albumin 3.4 g/dL (3.5-5.0); Albumin/Globulin Ratio 1.3; Anion Gap 7 mmol/L; Blood Urea Nitrogen 8 mg/dL (9-20); Calcium 8.1 mg/dL (8.4-10.2); Carbon Dioxide 21 mmol/L (22-30); Chloride 106 mmol/L (98-107); Globulin 2.7 g/dL; Glucose 95 mg/dL (74-99); Non-African American GFR(CKD) >90 (>60 ml/min/1.73 sqM); Sodium 134 mmol/L (137-145); Total Bilirubin 0.8 mg/dL (0.2-1.3); Total Protein 6.1 g/dL (6.3-8.2)
[2020-10-22 08:57] LABS: Potassium 3.7 mmol/L (3.5-5.1)
[2020-10-22 08:58] LABS: AST 58 U/L (17-59); Alkaline Phosphatase 53 U/L (38-126)
--- NOTE | 2020-10-22 10:18 | P.PN ---
Progress Note - Text Progress Note Date: 10/22/20 Patient was seen and examined today, currently no more seizures, no chest pain, no abdominal pain, no nausea vomiting. He denies tremors. Treatment plan discussed with the patient was outside.
[2020-10-23 06:16] LABS: HCT 37.2 % (39.0-53.0); HGB 13.4 gm/dL (13.0-17.5); MCH 35.3 pg (25.0-35.0); MCHC 36.1 g/dL (31.0-37.0); MCV 97.9 fL (80.0-100.0); Mean Platelet Volume 8.4; Platelet Count 145 k/uL (150-450); WBC 5.3 k/uL (3.8-10.6)
[2020-10-23 08:29] VITALS: BP 126/78; PULSE 81; RESP 18; TEMP 98.6
[2020-10-23] MEDS: THIAMINE 100 MG TAB PO SCH (08:34)
[2020-10-23] MEDS: HEPARIN SODIUM,PORCINE 5,000 UNIT/ML 1 ML VIAL SQ SCH (08:34)
[2020-10-23] MEDS: FOLIC ACID 1 MG TAB PO SCH (08:34)
[2020-10-23 09:08] LABS: Albumin 3.6 g/dL (3.80-4.90); Albumin/Globulin Ratio 1.57 (1.60-3.17); Anion Gap 5.7 mmol/L (4.00-12.00); BUN/Creat Ratio 8.75 Ratio (12.00-20.00); Calcium 8.9 mg/dL (8.7-10.3); Carbon Dioxide 28.3 mmol/L (21.6-31.8); Globulin 2.3 g/dL (1.6-3.3); Magnesium 1.7 mg/dL (1.5-2.4); Non-African American GFR(CKD) 102.7 (60.0-200.0); Potassium 3.7 mmol/L (3.5-5.5); Total Bilirubin 0.6 mg/dL (0.2-1.2); Total Protein 5.9 g/dL (6.2-8.2)
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
== END 2020-10-23 11:32 | disposition home or self-care (01) | DRG 897 ==
LOC: EC 17:50 → 6NMEDSUR 22:17 → 5NMEDONC 10-22 18:04
PROVIDERS: ADMIT Internal Medicine; ATTEND Internal Medicine
PROC: 0HQ0XZZ Repair Scalp Skin, External Approach (ICD-10-PCS; principal; 2020-10-21)
DX: F10.239 Alcohol dependence with withdrawal, unspecified (principal); E87.2 Acidosis; F17.200 Nicotine dependence, unspecified, uncomplicated; S00.03XA Contusion of scalp, initial encounter; R32 Unspecified urinary incontinence; D69.6 Thrombocytopenia, unspecified; R56.9 Unspecified convulsions; M50.30 Other cervical disc degeneration, unspecified cervical region; Y90.0 Blood alcohol level of less than 20 mg/100 ml; K14.6 Glossodynia; W19.XXXA Unspecified fall, initial encounter; Z91.030 Bee allergy status; Z98.890 Other specified postprocedural states
CPT/HCPCS: 12004; 36415; 70450; 72125; 80053; 80306; 80320; 81001; 83735; 84484; 85025; 85027; 85610; 85730; 86850; 86900; 86901; 93005; 96365; 96366; 96372; 96374; 99285

== ENCOUNTER 2020-12-28 19:27 | Emergency (ER) | payer OTHER ==
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
--- NOTE | 2020-12-28 20:49 | XR ---
EXAMINATION TYPE: XR chest 1V portable DATE OF EXAM: 12/28/2020 COMPARISON: 03/19/2015 HISTORY: Cough TECHNIQUE: FINDINGS: Heart and mediastinum are normal. Lungs are clear. Diaphragm is normal. Bony thorax appears normal. IMPRESSION: Normal chest. No change.
[2020-12-28 22:50] LABS: Amphetamine Screen,Urine Not Detected (NotDetected); Barbiturate Screen,Urine Not Detected (NotDetected); Benzodiazepines Screen,Urine Not Detected (NotDetected); Cocaine Screen,Urine Not Detected (NotDetected); Methadone Screen, Urine Not Detected (NotDetected); Opiate Screen,Urine Not Detected (NotDetected); Oxycodone Screen, Urine Not Detected (NotDetected); Phencyclidine Screen,Urine Not Detected (NotDetected); Tricyclic Antidepressant,Urine Not Detected (NotDetected); Urn Cannabinoid Scrn Detected (NotDetected)
[2020-12-29 07:42] VITALS: BP 150/93; PULSE 77; RESP 16; TEMP 97.9
== END 2020-12-29 10:55 | disposition home or self-care (01) ==
LOC: EC 19:27
DX: F10.129 Alcohol abuse with intoxication, unspecified (principal); F17.200 Nicotine dependence, unspecified, uncomplicated; Z91.030 Bee allergy status
CPT/HCPCS: 70450; 71045; 72125; 80306; 82075; 99284

== ENCOUNTER 2021-02-05 07:40 | Inpatient (IN) | payer OTHER ==
[2021-02-05] MEDS ORDERED: SODIUM CHLORIDE 0.9% 1,000 ML IV STA (07:41)
[2021-02-05] MEDS ORDERED: LORazepam 2 MG/ML INJ IV STA (07:42)
--- NOTE | 2021-02-05 07:56 | ED ---
General Adult HPI - General Stated complaint: Withdraw Time Seen by Provider: 02/05/21 07:41 Source: patient, EMS, RN notes reviewed, old records reviewed Mode of arrival: EMS Limitations: no limitations - History of Present Illness Initial comments: 51-year-old male presents for evaluation of generalized shaking, concern for alcohol withdrawal. Patient states she's had symptoms for approximately 4 hours. He states she's not feeling well. He does report a mild cough. He d enies central chest pain. Denies abdominal pain but his had some nausea. He states this is similar to previous episodes of alcohol withdrawal. He admits to heavy alcohol consumption daily. - Related Data Home Medications Medication Instructions Recorded Confirmed No Known Home Medications 08/30/15 02/05/21 Allergies Allergy/AdvReac Type Severity Reaction Status Date / Time venom-honey bee Allergy Unknown Verified 02/05/21 08:04 [bee venom (honey bee)] Review of Systems ROS Statement: Those systems with pertinent positive or pertinent negative responses have been documented in the HPI. ROS Other: All systems not noted in ROS Statement are negative. Past Medical History Past Medical History: Unable to Obtain Additional Past Medical History / Comment(s): Pectus excavatum, broken nose History of Any Multi-Drug Resistant Organisms: None Reported Past Surgical History: Orthopedic Surgery Additional Past Surgical History / Comment(s): LEFT KNEE SURGERY Past Anesthesia/Blood Transfusion Reactions: No Reported Reaction Past Psychological History: No Psychological Hx Reported Smoking Status: Current every day smoker Past Alcohol Use History: Abuse, Daily, Heavy Past Drug Use History: Marijuana - Past Family History Family Family Medical History: Unable to Obtain General Exam Limitations: no limitations General appearance: alert, appears intoxicated Head exam: Present: normocephalic, other (Well-healing scar on the right fore head) Eye exam: Present: normal appearance Respiratory exam: Present: normal lung sounds bilaterally. Absent: respiratory distress, wheezes Cardiovascular Exam: Present: normal rhythm, tachycardia GI/Abdominal exam: Present: soft, distended. Absent: tenderness, guarding Extremities exam: Present: normal inspection, normal capillary refill Neurological exam: Present: alert, oriented X3. Absent: motor sensory deficit Psychiatric exam: Present: normal affect, normal mood Skin exam: Present: warm, dry, intact. Absent: cyanosis, diaphoretic Course Vital Signs 02/05/21 02/05/21 02/05/21 07:44 08:09 08:51 Temperature 98.7 F Pulse Rate 115 H 101 H Respiratory 22 24 16 Rate Blood Pressure 141/115 160/111 O2 Sat by Pulse 100 99 Oximetry EKG Findings - EKG Comments: EKG Findings:: EKG: Normal sinus rhythm, artifact secondary to tremor, rate of 98, CT interval 142, QRS duration 82, QTC 462 Medical Decision Making - Medical Decision Making 51-year-old male presenting with alcohol, mild cough. Patient is tremulous, mildly tachycardic. Workup is initiated, he has a CBC showing normal cytopenia with no other acute abnormalities. On CMP is acidotic with CO2 of 20, lactic acid of 6.1 which I suspect is related to dehydration and alcohol abuse rather than sepsis. Patient's alcohol level is 57. Chest x-ray negative for acute cardiopulmonary disease. He will be admitted for alcohol withdrawal, dehydration, lactic acidosis. Case discussed with Dr. Nicole who will admit. - Lab Data Result diagrams: 02/05/21 07:48 02/05/21 07:48 Lab Results 02/05/21 02/05/21 02/05/21 Range/Units 07:48 07:48 07:48 WBC 5.0 (3.8-10.6) k/uL RBC 5.05 (4.30-5.90) m/uL Hgb 17.4 (13.0-17.5) gm/dL Hct 50.1 (39.0-53.0) % MCV 99.4 (80.0-100.0) fL MCH 34.5 (25.0-35.0) pg MCHC 34.7 (31.0-37.0) g/dL RDW 14.4 (11.5-15.5) % Plt Count 88 L (150-450) k/uL MPV 9.3 Neutrophils % 71 % Lymphocytes % 18 % Monocytes % 8 % Eosinophils % 1 % Basophils % 1 % Neutrophils # 3.5 (1.3-7.7) k/uL Lymphocytes # 0.9 L (1.0-4.8) k/uL Monocytes # 0.4 (0-1.0) k/uL Eosinophils # 0.0 (0-0.7) k/uL Basophils # 0.0 (0-0.2) k/uL Manual Slide Review Performed Poikilocytosis (manual Present PT 11.1 (9.0-12.0) sec INR 1.1 (<1.2) APTT 24.4 (22.0-30.0) sec Sodium 134 L (137-145) mmol/L Potassium 3.6 (3.5-5.1) mmol/L Chloride 95 L (98-107) mmol/L Carbon Dioxide 20 L (22-30) mmol/L Anion Gap 19 mmol/L BUN 4 L (9-20) mg/dL Creatinine 0.63 L (0.66-1.25) mg/dL Est GFR (CKD-EPI)AfAm >90 (>60 ml/min/1.73 sqM) Est GFR (CKD-EPI)NonAf >90 (>60 ml/min/1.73 sqM) Glucose 116 H (74-99) mg/dL Plasma Lactic Acid Moiz (0.7-2.0) mmol/L Calcium 9.0 (8.4-10.2) mg/dL Magnesium 1.4 L (1.6-2.3) mg/dL Total Bilirubin 1.1 (0.2-1.3) mg/dL AST 74 H (17-59) U/L ALT 37 (4-49) U/L Alkaline Phosphatase 123 (38-126) U/L Total Protein 7.7 (6.3-8.2) g/dL Albumin 4.5 (3.5-5.0) g/dL Serum Alcohol 57 mg/dL Coronavirus (PCR) (Not Detectd) 02/05/21 02/05/21 Range/Units 07:48 07:48 WBC (3.8-10.6) k/uL RBC (4.30-5.90) m/uL Hgb (13.0-17.5) gm/dL Hct (39.0-53.0) % MCV (80.0-100.0) fL MCH (25.0-35.0) pg MCHC (31.0-37.0) g/dL RDW (11.5-15.5) % Plt Count (150-450) k/uL MPV Neutrophils % % Lymphocytes % % Monocytes % % Eosinophils % % Basophils % % Neutrophils # (1.3-7.7) k/uL Lymphocytes # (1.0-4.8) k/uL Monocytes # (0-1.0) k/uL Eosinophils # (0-0.7) k/uL Basophils # (0-0.2) k/uL Manual Slide Review Poikilocytosis (manual PT (9.0-12.0) sec INR (<1.2) APTT (22.0-30.0) sec Sodium (137-145) mmol/L Potassium (3.5-5.1) mmol/L Chloride (98-107) mmol/L Carbon Dioxide (22-30) mmol/L Anion Gap mmol/L BUN (9-20) mg/dL Creatinine (0.66-1.25) mg/dL Est GFR (CKD-EPI)AfAm (>60 ml/min/1.73 sqM) Est GFR (CKD-EPI)NonAf (>60 ml/min/1.73 sqM) Glucose (74-99) mg/dL Plasma Lactic Acid Moiz 6.1 H* (0.7-2.0) mmol/L Calcium (8.4-10.2) mg/dL Magnesium (1.6-2.3) mg/dL Total Bilirubin (0.2-1.3) mg/dL AST (17-59) U/L ALT (4-49) U/L Alkaline Phosphatase (38-126) U/L Total Protein (6.3-8.2) g/dL Albumin (3.5-5.0) g/dL Serum Alcohol mg/dL Coronavirus (PCR) Not Detected (Not Detectd) Disposition Clinical Impression: Dehydration, Lactic acid acidosis, Alcohol withdrawal Disposition: ADMITTED IP TO THIS [facility] Condition: Stable Is patient prescribed a controlled substance at d/c from ED?: No Referrals: Alberto Nicole MD [Primary Care Provider] - 1-2 days Decision to Admit Reason: Admit from EC Decision Date: 02/05/21 Decision Time: 08:55
[2021-02-05 08:20] LABS: ALT 37 U/L (4-49); AST 74 U/L (17-59); African American GFR (CKD) >90 (>60 ml/min/1.73 sqM); Albumin 4.5 g/dL (3.5-5.0); Alcohol 57 mg/dL; Alkaline Phosphatase 123 U/L (38-126); Anion Gap 19 mmol/L; Blood Urea Nitrogen 4 mg/dL (9-20); Carbon Dioxide 20 mmol/L (22-30); Chloride 95 mmol/L (98-107); Glucose 116 mg/dL (74-99); Magnesium 1.4 mg/dL (1.6-2.3); Non-African American GFR(CKD) >90 (>60 ml/min/1.73 sqM); Potassium 3.6 mmol/L (3.5-5.1); Sodium 134 mmol/L (137-145); Total Bilirubin 1.1 mg/dL (0.2-1.3); Total Protein 7.7 g/dL (6.3-8.2)
[2021-02-05] MEDS ORDERED: MAGNESIUM SULFATE-D5W PMX 1 GM in DEXTROSE/WATER 1 100ML.BAG IVPB ONE (08:23)
[2021-02-05 08:25] LABS: INR 1.1 (<1.2); Partial Thromboplastin Time 24.4 sec (22.0-30.0); Prothrombin Time 11.1 sec (9.0-12.0)
[2021-02-05 08:27] LABS: Basophils % (A) 1 %; Eosinophils % (A) 1 %; HCT 50.1 % (39.0-53.0); HGB 17.4 gm/dL (13.0-17.5); Lymphocytes # (A) 0.9 k/uL (1.0-4.8); Lymphocytes % (A) 18 %; MCH 34.5 pg (25.0-35.0); MCHC 34.7 g/dL (31.0-37.0); MCV 99.4 fL (80.0-100.0); Mean Platelet Volume 9.3; Monocytes # (A) 0.4 k/uL (0-1.0); Monocytes % (A) 8 %; Neutrophils # (A) 3.5 k/uL (1.3-7.7); Neutrophils % (A) 71 %; RBC 5.05 m/uL (4.30-5.90); RDW 14.4 % (11.5-15.5)
--- NOTE | 2021-02-05 08:28 | XR ---
EXAMINATION TYPE: XR chest 2V DATE OF EXAM: 02/05/2021 COMPARISON: Chest x-ray from December 28, 2020 and older studies HISTORY: Weakness. TECHNIQUE: Frontal and lateral views of the chest are obtained. FINDINGS: There is no new focal air space opacity, pleural effusion, or pneumothorax seen. The card iac silhouette size remains within normal limits. Pectus deformity on lateral view. Multilevel spur ring in the spine . IMPRESSION: No acute cardiopulmonary process.
[2021-02-05] MEDS ORDERED: SODIUM CHLORIDE 0.9% 500 ML 500 ML IV ONE (08:35)
[2021-02-05] MEDS ORDERED: LORazepam 2 MG/ML INJ IV PRN ×2 (08:37)
[2021-02-05] MEDS ORDERED: THIAMINE 100 MG/ML 2 ML VIAL IM STA (08:37)
[2021-02-05 08:42] LABS: Platelet Count 88 k/uL (150-450); Poikilocytosis (M) Present
[2021-02-05] MEDS ORDERED: NALOXONE 0.4 MG/ML 1 ML VIAL IV PRN (08:53)
[2021-02-05] MEDS: SODIUM CHLORIDE 0.9% 1,000 ML IV SCH ×2 (09:03→22:13)
[2021-02-05 10:27] LABS: Amorphous Sediment,Urine Rare /hpf; Appearance,Urine Cloudy (Clear); Bilirubin,Urine Negative (Negative); Blood,Urine Negative (Negative); Color,Urine Yellow; Glucose,Urine (UA) Negative (Negative); Ketones,Urine 1+ (Negative); Leukocyte Esterase,Urine Negative (Negative); Mucus,Urine Few /hpf; Nitrite,Urine Negative (Negative); PH, Urine 7.5 (5.0-8.0); Protein,Urine 1+ (Negative); RBC,Urine <1 /hpf (0-5); Specific Gravity,Urine 1.015 (1.001-1.035); Squamous Epithelial Cell,Urine <1 /hpf (0-4); WBC,Urine 2 /hpf (0-5)
[2021-02-05] MEDS: LORazepam 2 MG/ML INJ IV PRN ×2 (11:31→15:47)
[2021-02-05 15:21] LABS: Basophils % (A) 1 %; Eosinophils # (A) 0.1 k/uL (0-0.7); Eosinophils % (A) 1 %; HCT 42.9 % (39.0-53.0); HGB 15.6 gm/dL (13.0-17.5); Lymphocytes # (A) 0.8 k/uL (1.0-4.8); Lymphocytes % (A) 16 %; MCHC 36.3 g/dL (31.0-37.0); MCV 99.3 fL (80.0-100.0); Mean Platelet Volume 8.5; Monocytes # (A) 0.4 k/uL (0-1.0); Monocytes % (A) 7 %; Neutrophils # (A) 3.7 k/uL (1.3-7.7); Neutrophils % (A) 74 %; RBC 4.33 m/uL (4.30-5.90); RDW 13.5 % (11.5-15.5); WBC 4.9 k/uL (3.8-10.6)
[2021-02-05 15:24] LABS: Platelet Count 64 k/uL (150-450)
[2021-02-05 15:34] LABS: ALT 32 U/L (4-49); AST 54 U/L (17-59); African American GFR (CKD) >90 (>60 ml/min/1.73 sqM); Albumin 3.6 g/dL (3.5-5.0); Albumin/Globulin Ratio 1.3; Alkaline Phosphatase 91 U/L (38-126); Anion Gap 4 mmol/L; Blood Urea Nitrogen 5 mg/dL (9-20); Calcium 8.5 mg/dL (8.4-10.2); Carbon Dioxide 29 mmol/L (22-30); Chloride 96 mmol/L (98-107); Globulin 2.8 g/dL; Glucose 137 mg/dL (74-99); Non-African American GFR(CKD) >90 (>60 ml/min/1.73 sqM); Potassium 3.8 mmol/L (3.5-5.1); Sodium 129 mmol/L (137-145); Total Bilirubin 1.2 mg/dL (0.2-1.3); Total Protein 6.4 g/dL (6.3-8.2)
[2021-02-05] MEDS: THIAMINE 100 MG TAB PO SCH (17:01)
--- NOTE | 2021-02-05 17:59 | XR ---
EXAMINATION TYPE: XR chest 2V DATE OF EXAM: 02/05/2021 COMPARISON: Today HISTORY: Short of breath TECHNIQUE: 2 views. FINDINGS: Heart and mediastinum are normal. Lungs are clear. Diaphragm is normal. There is old right side poste rior rib fractures. There is probably old left clavicle fracture. Thoracic spine is intact. IMPRESSION: No active cardiac pulmonary disease. Normal heart. No change.
[2021-02-05] MEDS ORDERED: CALCIUM CARBONATE 500 MG CHEWABLE PO PRN (20:30)
[2021-02-06] MEDS: LORazepam 2 MG/ML INJ IV PRN ×3 (03:26→15:14)
[2021-02-06] MEDS: THIAMINE 100 MG TAB PO SCH (07:23)
[2021-02-06] MEDS ORDERED: PANTOPRAZOLE 40 MG TABLET PO SCH (07:30)
[2021-02-06 10:21] LABS: Basophils % (A) 1 %; Eosinophils # (A) 0.1 k/uL (0-0.7); Eosinophils % (A) 2 %; HCT 44.3 % (39.0-53.0); HGB 15.5 gm/dL (13.0-17.5); Lymphocytes # (A) 0.7 k/uL (1.0-4.8); Lymphocytes % (A) 14 %; MCH 34.8 pg (25.0-35.0); MCHC 34.9 g/dL (31.0-37.0); MCV 99.7 fL (80.0-100.0); Mean Platelet Volume 9.1; Monocytes # (A) 0.3 k/uL (0-1.0); Monocytes % (A) 6 %; Neutrophils # (A) 3.6 k/uL (1.3-7.7); Neutrophils % (A) 76 %; RBC 4.45 m/uL (4.30-5.90); RDW 13.6 % (11.5-15.5); WBC 4.8 k/uL (3.8-10.6)
[2021-02-06 10:23] LABS: Platelet Count 64 k/uL (150-450)
[2021-02-06 10:29] LABS: ALT 25 U/L (4-49); AST 46 U/L (17-59); African American GFR (CKD) >90 (>60 ml/min/1.73 sqM); Albumin 3.6 g/dL (3.5-5.0); Albumin/Globulin Ratio 1.2; Alkaline Phosphatase 85 U/L (38-126); Anion Gap 8 mmol/L; Blood Urea Nitrogen 2 mg/dL (9-20); Calcium 8.5 mg/dL (8.4-10.2); Carbon Dioxide 23 mmol/L (22-30); Chloride 101 mmol/L (98-107); Glucose 112 mg/dL (74-99); Magnesium 1.6 mg/dL (1.6-2.3); Non-African American GFR(CKD) >90 (>60 ml/min/1.73 sqM); Potassium 3.4 mmol/L (3.5-5.1); Sodium 132 mmol/L (137-145); Total Bilirubin 1.1 mg/dL (0.2-1.3); Total Protein 6.6 g/dL (6.3-8.2)
[2021-02-06 11:41] VITALS: BP 147/86; PULSE 79; RESP 17; TEMP 98.4
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
--- NOTE | 2021-02-06 16:24 | PN ---
PROGRESS NOTE DATE OF SERVICE: 02/06/2021 CHIEF COMPLAINT: Acute alcohol intoxication. HISTORY OF PRESENT ILLNESS: This gentleman is a little bit more alert. He denies diplopia, tremors, nausea, vomiting. PHYSICAL EXAMINATION: Color is normal. Chest sounds fairly clear except for occasional rhonchi. Cardiac exam is normal. Abdomen is soft. IMPRESSION: 1. Acute alcohol intoxication. 2. Chronic alcoholism. 3. Chronic obstructive pulmonary disease. PLAN: Continue on management for DTs. MMODL / IJN: [id number] /
== END 2021-02-06 17:10 | disposition left against medical advice (07) | DRG 894 ==
LOC: EC 07:40 → 5NMEDONC 08:53
PROVIDERS: ADMIT Family Medicine; ATTEND Family Medicine
DX: F10.231 Alcohol dependence with withdrawal delirium (principal); E87.2 Acidosis; F10.220 Alcohol dependence with intoxication, uncomplicated; Z20.822 Contact with and (suspected) exposure to COVID-19; J44.9 Chronic obstructive pulmonary disease, unspecified; E86.0 Dehydration; F17.200 Nicotine dependence, unspecified, uncomplicated; Y90.2 Blood alcohol level of 40-59 mg/100 ml; Q67.6 Pectus excavatum; D75.9 Disease of blood and blood-forming organs, unspecified; L90.5 Scar conditions and fibrosis of skin; S01.81XS Laceration without foreign body of other part of head, sequela; V89.2XXS Person injured in unspecified motor-vehicle accident, traffic, sequela; Z56.0 Unemployment, unspecified; Z98.890 Other specified postprocedural states; Z87.81 Personal history of (healed) traumatic fracture; Z91.030 Bee allergy status
CPT/HCPCS: 36415; 71046; 80053; 80320; 81001; 83605; 83735; 85025; 85610; 85730; 87635; 93005; 96361; 96365; 96375; 99285

== ENCOUNTER 2021-05-26 09:05 | Emergency (ER) | payer OTHER ==
[2021-05-26 09:09] VITALS: BP 137/85; PULSE 100; RESP 18; TEMP 98.4
--- NOTE | 2021-05-26 09:24 | ED ---
General Adult HPI - General Chief complaint: Skin/Abscess/Foreign Body Stated complaint: Skin Issues Time Seen by Provider: 05/26/21 09:08 Source: patient, RN notes reviewed, old records reviewed Mode of arrival: ambulatory Limitations: no limitations - History of Present Illness Initial comments: 51-year-old male with rash to the lower legs which has presented over the past several days. He thought that he needed, contact with poison gisela. He had some blistering lesions predominantly on the left lower leg. No fever or chills. He has been having cleansing externally and the blisters have subsequently popped with no further drainage. He's noticed crusting over the lesions. He did have some irritation to the right forearm as well. He has been in contact with shrub growth and weedy areas. - Related Data Previous Rx's Medication Instructions Recorded Cephalexin [Keflex] 500 mg PO QID #40 cap 05/26/21 predniSONE 50 mg PO DAILY #5 tab 05/26/21 Allergies Allergy/AdvReac Type Severity Reaction Status Date / Time venom-honey bee Allergy Unknown Verified 05/26/21 09:06 [bee venom (honey bee)] Review of Systems ROS Statement: Those systems with pertinent positive or pertinent negative responses have been documented in the HPI. ROS Other: All systems not noted in ROS Statement are negative. Past Medical History Past Medical History: Hypertension Additional Past Medical History / Comment(s): Pectus excavatum, broken nose History of Any Multi-Drug Resistant Organisms: None Reported Past Surgical History: Orthopedic Surgery Additional Past Surgical History / Comment(s): LEFT KNEE SURGERY Past Anesthesia/Blood Transfusion Reactions: No Reported Reaction Past Psychological History: No Psychological Hx Reported Smoking Status: Current every day smoker Past Alcohol Use History: Abuse, Daily, Heavy Past Drug Use History: Marijuana - Past Family History Family Family Medical History: Unable to Obtain General Exam Limitations: no limitations General appearance: alert, in no apparent distress Head exam: Present: atraumatic, normocephalic Eye exam: Present: normal appearance, PERRL ENT exam: Present: normal exam Neck exam: Present: normal inspection. Absent: tenderness, meningismus Respiratory exam: Present: normal lung sounds bilaterally. Absent: respiratory distress, wheezes Cardiovascular Exam: Present: regular rate, normal rhythm GI/Abdominal exam: Present: soft. Absent: distended, tenderness Neurological exam: Present: alert, oriented X3 Psychiatric exam: Present: normal affect, normal mood Skin exam: Present: other (Contact dermatitis left lower extremity with areas of previous blister and surrounding erythema.) Course Vital Signs 05/26/21 09:06 Temperature 98.4 F Pulse Rate 100 Respiratory 18 Rate Blood Pressure 137/85 O2 Sat by Pulse 100 Oximetry Medical Decision Making - Medical Decision Making 51-year-old male with dermatitis, concerning for poison gisela dermatitis with some secondary erythema concerning for cellulitis. Patient started on oral steroids and antibiotics. He will follow with his primary care physician. Return parameters discussed. Disposition Clinical Impression: Contact dermatitis, Cellulitis, Poison gisela dermatitis Disposition: HOME SELF-CARE Condition: Good Instructions (If sedation given, give patient instructions): Poison Gisela (ED), Cold Compress or Soak (ED), Cellulitis (ED) Additional Instructions: Please apply topical antibiotics to open areas. Triple antibiotic ointment. Prescriptions: Cephalexin [Keflex] 500 mg PO QID #40 cap predniSONE 50 mg PO DAILY #5 tab Is patient prescribed a controlled substance at d/c from ED?: No Referrals: Alberto Nicole MD [Primary Care Provider] - 1-2 days Time of Disposition: 09:20
== END 2021-05-26 09:45 | disposition home or self-care (01) ==
LOC: EC 09:05
DX: L23.7 Allergic contact dermatitis due to plants, except food (principal); L03.116 Cellulitis of left lower limb; I10 Essential (primary) hypertension; F17.200 Nicotine dependence, unspecified, uncomplicated; F12.90 Cannabis use, unspecified, uncomplicated
CPT/HCPCS: 99282

== ENCOUNTER 2022-04-29 17:31 | Emergency (ER) | payer OTHER ==
[2022-04-29 17:38] VITALS: BP 145/86; PULSE 109; RESP 16; TEMP 98.2
--- NOTE | 2022-04-29 18:10 | ED ---
General Adult HPI - General Chief complaint: Medical Clearance Stated complaint: [facility] Clearance Time Seen by Provider: 04/29/22 17:31 Source: patient, police, RN notes reviewed, old records reviewed Mode of arrival: EMS Limitations: no limitations - History of Present Illness Initial comments: This is a 52-year-old male who is brought in by police because he was not cooperating they tasered him in the chest. Patient has no complaint other than where the taser hit him. Patient's multiple any of any chest pain or difficulty breathing. Patient denies headache patient denies numbness weakness. Patient states he drank 2/5 of alcohol earlier today. - Related Data Previous Rx's Medication Instructions Recorded Cephalexin [Keflex] 500 mg PO QID #40 cap 05/26/21 predniSONE 50 mg PO DAILY #5 tab 05/26/21 Allergies Allergy/AdvReac Type Severity Reaction Status Date / Time venom-honey bee Allergy Unknown Verified 04/29/22 17:40 [bee venom (honey bee)] Review of Systems ROS Statement: Those systems with pertinent positive or pertinent negative responses have been documented in the HPI. ROS Other: All systems not noted in ROS Statement are negative. Past Medical History Past Medical History: Hypertension Additional Past Medical History / Comment(s): Pectus excavatum, broken nose History of Any Multi-Drug Resistant Organisms: None Reported Past Surgical History: Orthopedic Surgery Additional Past Surgical History / Comment(s): LEFT KNEE SURGERY Past Anesthesia/Blood Transfusion Reactions: No Reported Reaction Past Psychological History: No Psychological Hx Reported Smoking Status: Current every day smoker Past Alcohol Use History: Abuse, Daily, Heavy Past Drug Use History: Marijuana - Past Family History Family Family Medical History: Unable to Obtain General Exam - General Exam Comments Initial Comments: GENERAL: Patient is well-developed and well-nourished. Patient is nontoxic and well- hydrated and is in no acute distress. Patient does appear slightly intoxicated ENT: Neck is soft and supple. No significant lymphadenopathy is noted. Oropharynx is clear. Moist mucous membranes. Neck has full range of motion without eliciting any pain. EYES: The sclera were anicteric and conjunctiva were pink and moist. Extraocular movements were intact and pupils were equal round and reactive to light. Eyelids were unremarkable. PULMONARY: Unlabored respirations. Good breath sounds bilaterally. No audible rales rhonchi or wheezing was noted. CARDIOVASCULAR: There is a regular rate and rhythm without any murmurs gallops or rubs. ABDOMEN: Soft and nontender with normal bowel sounds. SKIN: Patient has 2 small puncture wounds to the anterior aspect of his chest. NEUROLOGIC: Patient is alert and oriented x3. Cranial nerves II through XII are grossly intact. Motor and sensory are also intact. Normal speech, volume and content. Symmetrical smile. MUSCULOSKELETAL: Normal extremities with adequate strength and full range of motion. LYMPHATICS: No significant lymphadenopathy is noted PSYCHIATRIC: Normal psychiatric evaluation. Limitations: no limitations Course Vital Signs 04/29/22 17:32 Temperature 98.2 F Pulse Rate 109 H Respiratory 16 Rate Blood Pressure 145/86 O2 Sat by Pulse 96 Oximetry Medical Decision Making - Medical Decision Making We got the patient out of bed and he ambulated without problem. Patient was alert and oriented 3 Disposition Clinical Impression: Alcohol intoxication, Medical clearance for incarceration Disposition: HOME SELF-CARE Condition: Good Instructions (If sedation given, give patient instructions): Alcohol Intoxication (ED) Is patient prescribed a controlled substance at d/c from ED?: No Referrals: Alberto Nicole MD [Primary Care Provider] - 1-2 days Time of Disposition: 18:10
== END 2022-04-29 18:00 | disposition home or self-care (01) ==
LOC: EC 17:31
DX: F10.129 Alcohol abuse with intoxication, unspecified (principal); Z02.89 Encounter for other administrative examinations; I10 Essential (primary) hypertension; F17.200 Nicotine dependence, unspecified, uncomplicated; Z91.030 Bee allergy status
CPT/HCPCS: 82075